=== PATIENT | female | born 1975 | race Caucasian/White ===

== ENCOUNTER 2017-05-06 10:27 | Emergency (ER) | payer BC, OTHER ==
[~2017-05-06] VITALS: Ht 162.6 cm; Wt 73.5 kg
[~2017-05-06 10:27] MED LIST: CYCL-36 PO; FIORIC PO; FLUO60TA OR; GABA300C3 PO; HYDR-3129 PO; LORA1TAB PO; PROT40TA PO; TRAM50TA PO
[2017-05-06 10:32] VITALS: BP 113/70; PULSE 91; RESP 16; TEMP 98; O2SAT 97
[2017-05-06] MEDS ORDERED: PANT20TA2 PO (10:44)
[2017-05-06] MEDS ORDERED: FLUO40CA PO (10:44)
[2017-05-06] MEDS ORDERED: LORA-474 PO (10:44)
[2017-05-06] MEDS ORDERED: ACYC400T PO (11:36)
--- NOTE | 2017-05-06 11:40 | PD ---
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 She says it has been going on for several days. She has never had symptoms like this before. She does not think she is . She is and sexually active only with her . PFSH Past Medical History Hx Anticoagulant Therapy: No Anxiety: Yes Depression: Yes Cancer: No Cardiovascular Problems: No Cerebrovascular Accident: No Diabetes: No Diminished Hearing: No Endocrine: No GERD: Yes Genitourinary: No Headaches: Yes Hepatitis: No Hiatal Hernia: No Immune Disorder: No Musculoskeletal: Yes (NECK PAIN WITH NUMBNESS L ARM) Neurologic: Yes (NECK PAIN) Psychiatric: No Reproductive: Yes (IVF, PCOS) Respiratory: No Migraines: Yes Seizures: No Thyroid Disease: No ?: Not LMP: LAST WEEK : 1 Para: 2 Past Surgical History Abdominal Surgery: No AICD: No Appendectomy: Yes Cardiac Surgery: No Section: Yes Ear Surgery: No Endocrine Surgery: No Eye Surgery: No Genitourinary Surgery: No Gynecologic Surgery: Yes (C SECTION, ) Joint Replacement: No Neurologic Surgery: Yes (TODAY C-5 C-6 C-7) Oral Surgery: No Pacemaker: No Thoracic Surgery: No Other Surgery: Yes Social History Alcohol Use: No Tobacco Use: No Substance Use: No Allergies-Medications (Allergen,Severity, Reaction): Coded Allergies: Influenza Virus Vaccines (Unverified Allergy, Severe, HIVES, 05/06/17) penicillin G (Unverified Allergy, Severe, RASH, 05/06/17) fentanyl (Unverified Allergy, Unknown, unknown, 05/06/17) prochlorperazine (Unverified Allergy, Unknown, PARALYSIS, 05/06/17) Reported Meds & Prescriptions Reported Meds & Active Scripts Active Acyclovir 400 Mg Tab 400 Mg PO TID 10 Days Reported Ativan (Lorazepam) 1 Mg Tab 3 Mg PO DAILY Pantoprazole (Pantoprazole Sodium) 20 Mg Tab 60 Mg PO DAILY Fluoxetine (Fluoxetine HCl) 40 Mg Cap 80 Cap PO DAILY Review of Systems General / Constitutional: No: Fever, Chills Eyes: No: Diploplia Genitourinary: No: Hesitancy, Vaginal Bleeding Skin: Positive Rash Physical Exam Narrative GENERAL: Well developed female SKIN: Focused skin assessment warm/dry. HEAD: Atraumatic. Normocephalic. EYES: Pupils equal and round. No scleral icterus. No injection or drainage. ENT: No nasal bleeding or discharge. Mucous membranes pink and moist. NECK: Trachea midline. No JVD. GASTROINTESTINAL: Abdomen soft, non-tender, nondistended. Hepatic and splenic margins not palpable. Pelvic: There are no lesions on the external genitalia. At the introitus and involving the entire vagina of multiple ulcerated lesions. Also a few tiny wart type lesions more distally in the vagina. MUSCULOSKELETAL: No obvious deformities. No clubbing. No cyanosis. No edema. NEUROLOGICAL: Awake and alert. No obvious cranial nerve deficits. Motor grossly within normal limits. Normal speech. PSYCHIATRIC: Appropriate mood and affect; insight and judgment normal. Data Data Last Documented VS Vital Signs Date Time Temp Pulse Resp B/P (MAP) Pulse Ox O2 Delivery O2 Flow Rate FiO2 05/06/17 10:32 98.0 91 16 113/70 (84) 97 Orders Orders Herpes Simplex Virus Culture (05/06/17 11:20) Gc And Chlamydia Pcr (05/06/17 11:32) Wet Prep Profile (05/06/17 11:32) MDM Medical Decision Making Medical Screen Exam Complete: Yes Emergency Medical Condition: Yes Medical Record Reviewed: Yes Differential Diagnosis Differential includes genital herpes, genital warts, genital ulcers Narrative Course Patient has genital ulcers and I'm going to prescribe Zovirax. I have recommended to the patient that she should follow-up with GYNas she does not understand how she could've gotten this and in fact it could be another cause for her genital ulcers Diagnosis Primary Impression: Female genital ulcer disease Scripts Acyclovir (Acyclovir) 400 Mg Tab 400 MG PO TID for Mgmt Viral Infection for 10 Days, TAB 0 Refills Prov: Mark Escobar MD 05/06/17 Disposition: 01 DISCHARGE HOME Condition: Stable Mark Escobar MD May 06, 2017 11:40
[2017-05-06 17:53] LABS: CHLAMYDIA PCR NOT DETECTED (NOT DETECT); NEISSERIA PCR NOT DETECTED (NOT DETECT)
== END 2017-05-06 12:00 | disposition home or self-care (01) ==
LOC: PHED 10:27
DX: A60.00 Herpesviral infection of urogenital system, unspecified (principal)
CPT/HCPCS: 87210; 87255; 87491; 87591; 99284

== ENCOUNTER 2017-08-04 02:49 | Emergency (ER) | payer BC ==
[~2017-08-04] VITALS: Ht 162.6 cm; Wt 74.0 kg
[~2017-08-04 02:49] MED LIST changes: +ACYC400T PO; -CYCL-36 PO; -FIORIC PO; +FLUO40CA PO; -FLUO60TA OR; -GABA300C3 PO; -HYDR-3129 PO; +LORA-474 PO; -LORA1TAB PO; +PANT20TA2 PO; -PROT40TA PO; -TRAM50TA PO
[2017-08-04 02:54] VITALS: BP 131/83; PULSE 101; RESP 16; TEMP 97.4; O2SAT 99
[2017-08-04 03:00] VITALS: BP 131/83; PULSE 101; RESP 16; TEMP 97.4; O2SAT 99
[2017-08-04] MEDS ORDERED: SODIUM CHLOR 0.9% 1000 ML INJ 1,000 ML IV SCH ×2 (03:09→04:09)
[2017-08-04] MEDS ORDERED: SODIUM CHLORIDE 0.9% FLUSH 10 ML FLUSH IV FLUSH PRN (03:15)
[2017-08-04] MEDS ORDERED: HYDROmorphone HCL PF 1 MG/ML VIAL IVP ONE ×2 (03:15→04:00)
[2017-08-04] MEDS ORDERED: ONDANSETRON HCL 4 MG/2 ML VIAL IV ONE ×2 (03:15→04:00)
--- NOTE | 2017-08-04 03:15 | PD ---
HPI Chief Complaint: Abdominal Pain Time Seen by Provider: 03:00 Travel History International Travel<30 days: No Contact w/Intl Traveler<30days: No Traveled to known affect area: No History of Present Illness HPI The patient is a 41-year-old female, G1, P2, A0 that complains of right upper quadrant abdominal pain for 2 hours. There is no radiation of the pain. She has been nauseated without vomiting. She denies any fever. She denies any melanotic or bloody stools. She denies any previous episodes of this pain. She states she cannot be , she is not sexually active. The pain as a 9/ 10 and sharp pain. She denies any aspirin or nonsteroidal anti-inflammatory drug use. She does not drink alcohol. The patient states she already takes pantoprazole. She has a Almaraz's esophagus and has a history of reflux esophagitis. 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 PFSH Past Medical History Hx Anticoagulant Therapy: No Anxiety: Yes Depression: Yes Cancer: No Cardiovascular Problems: No Cerebrovascular Accident: No Diabetes: No Diminished Hearing: No Endocrine: No GERD: Yes Genitourinary: No Headaches: Yes Hepatitis: No Hiatal Hernia: No Immune Disorder: No Musculoskeletal: Yes (NECK PAIN WITH NUMBNESS L ARM) Neurologic: Yes (NECK PAIN) Psychiatric: No Reproductive: Yes (IVF, PCOS) Respiratory: No Migraines: Yes Seizures: No Thyroid Disease: No : 1 Para: 2 Past Surgical History Abdominal Surgery: No AICD: No Appendectomy: Yes Cardiac Surgery: No Section: Yes Ear Surgery: No Endocrine Surgery: No Eye Surgery: No Genitourinary Surgery: No Gynecologic Surgery: Yes (C SECTION, ) Joint Replacement: No Neurologic Surgery: Yes (TODAY C-5 C-6 C-7) Oral Surgery: No Pacemaker: No Thoracic Surgery: No Other Surgery: Yes Social History Alcohol Use: No Tobacco Use: No Substance Use: No Allergies-Medications (Allergen,Severity, Reaction): Coded Allergies: Influenza Virus Vaccines (Unverified Allergy, Severe, HIVES, 08/04/17) penicillin G (Unverified Allergy, Severe, RASH, 08/04/17) fentanyl (Unverified Allergy, Unknown, unknown, 08/04/17) prochlorperazine (Unverified Allergy, Unknown, PARALYSIS, 08/04/17) Reported Meds & Prescriptions Reported Meds & Active Scripts Active Percocet (Oxycodone-Acetaminophen) 5-325 mg Tab 1 Tab PO Q4H PRN Zofran (Ondansetron HCl) 4 Mg Tab 4 Mg PO Q6HR PRN Zantac (Ranitidine HCl) 150 Mg Tab 150 Mg PO BID Reported Lorazepam 2 Mg Tab 2 Mg PO HS PRN Lorazepam 1 Mg Tab 1 Mg PO DAILY PRN Pantoprazole (Pantoprazole Sodium) 40 Mg Tab 40 Mg PO BID Fluoxetine (Fluoxetine HCl) 40 Mg Cap 80 Cap PO DAILY Review of Systems Except as stated in HPI: all other systems reviewed are Neg Physical Exam Narrative GENERAL: The patient is alert, oriented 3 in moderate apparent distress with her upper quadrant abdominal pain. Her vital signs show heart rate of 101 but otherwise normal. SKIN: Focused skin assessment warm/dry. HEAD: Atraumatic. Normocephalic. EYES: Pupils equal and round. No scleral icterus. No injection or drainage. ENT: No nasal bleeding or discharge. Mucous membranes pink and moist. NECK: Trachea midline. No JVD. CARDIOVASCULAR: Regular rate and rhythm. No murmur appreciated. RESPIRATORY: No accessory muscle use. Clear to auscultation. Breath sounds equal bilaterally. GASTROINTESTINAL: Abdomen soft, with tenderness to direct palpation in the right upper quadrant, nondistended. Hepatic and splenic margins not palpable. No guarding or rebound is present. Bertrand's sign is positive. MUSCULOSKELETAL: No obvious deformities. No clubbing. No cyanosis. No edema. NEUROLOGICAL: Awake and alert. No obvious cranial nerve deficits. Motor grossly within normal limits. Normal speech. PSYCHIATRIC: Appropriate mood and affect; insight and judgment normal. Data Data Last Documented VS Vital Signs Date Time Temp Pulse Resp B/P (MAP) Pulse Ox O2 Delivery O2 Flow Rate FiO2 08/04/17 04:56 90 16 113/73 (86) 99 Room Air 08/04/17 03:00 97.4 Orders Orders Beta Hcg (Quant/Titer) (08/04/17 03:09) Complete Blood Count With Diff (08/04/17 03:09) Comprehensive Metabolic Panel (08/04/17 03:09) Lipase (08/04/17 03:09) Urinalysis - C+S If Indicated (08/04/17 03:09) Ct Abd/Pel W Iv Contrast(Rout) (08/04/17 03:09) Iv Access Insert/Monitor (08/04/17 03:09) Ecg Monitoring (08/04/17 03:09) Oximetry (08/04/17 03:09) Sodium Chlor 0.9% 1000 Ml Inj (Ns 1000 M (08/04/17 03:09) Sodium Chloride 0.9% Flush (Ns Flush) (08/04/17 03:15) Hydromorphone Pf Inj (Dilaudid Pf Inj) (08/04/17 03:15) Ondansetron Inj (Zofran Inj) (08/04/17 03:15) Iohexol 350 Inj (Omnipaque 350 Inj) (08/04/17 03:20) Ondansetron Inj (Zofran Inj) (08/04/17 04:00) Hydromorphone Pf Inj (Dilaudid Pf Inj) (08/04/17 04:00) Pantoprazole Inj (Protonix Inj) (08/04/17 04:15) Sodium Chlor 0.9% 1000 Ml Inj (Ns 1000 M (08/04/17 04:09) Famotidine Inj (Pepcid Inj) (08/04/17 04:15) Al-Mag Hy-Si 40-40-4 Mg/Ml Liq (Mag-Al P (08/04/17 04:15) Lidocaine 2% Viscous (Xylocaine 2% Visco (08/04/17 04:15) Labs Laboratory Tests Test 08/04/17 03:14 White Blood Count 8.8 TH/MM3 Red Blood Count 4.10 MIL/MM3 Hemoglobin 12.6 GM/DL Hematocrit 37.0 % Mean Corpuscular Volume 90.2 FL Mean Corpuscular Hemoglobin 30.8 PG Mean Corpuscular Hemoglobin Concent 34.2 % Red Cell Distribution Width 12.6 % Platelet Count 260 TH/MM3 Mean Platelet Volume 8.6 FL Neutrophils (%) (Auto) 45.2 % Lymphocytes (%) (Auto) 44.8 % Monocytes (%) (Auto) 6.8 % Eosinophils (%) (Auto) 2.7 % Basophils (%) (Auto) 0.5 % Neutrophils # (Auto) 4.1 TH/MM3 Lymphocytes # (Auto) 3.9 TH/MM3 Monocytes # (Auto) 0.6 TH/MM3 Eosinophils # (Auto) 0.2 TH/MM3 Basophils # (Auto) 0.0 TH/MM3 CBC Comment DIFF FINAL Differential Comment Urine Color YELLOW Urine Turbidity CLEAR Urine pH 7.0 Urine Specific [place] 1.015 Urine Protein NEG mg/dL Urine Glucose (UA) NEG mg/dL Urine Ketones NEG mg/dL Urine Occult Blood NEG Urine Nitrite NEG Urine Bilirubin NEG Urine Leukocyte Esterase NEG Urine RBC 0-2 /hpf Urine WBC 0-2 /hpf Urine Squamous Epithelial Cells 0-5 /hpf Urine Bacteria NONE /hpf Microscopic Urinalysis Comment CULT NOT INDICATED Blood Urea Nitrogen 15 MG/DL Creatinine 0.78 MG/DL Random Glucose 91 MG/DL Total Protein 7.2 GM/DL Albumin 3.6 GM/DL Calcium Level 8.6 MG/DL Alkaline Phosphatase 89 U/L Aspartate Amino Transf (AST/SGOT) 15 U/L Alanine Aminotransferase (ALT/SGPT) 33 U/L Total Bilirubin 0.2 MG/DL Sodium Level 137 MEQ/L Potassium Level 3.6 MEQ/L Chloride Level 103 MEQ/L Carbon Dioxide Level 26.6 MEQ/L Anion Gap 7 MEQ/L Estimat Glomerular Filtration Rate 81 ML/MIN Lipase 248 U/L Human Chorionic Gonadotropin, Quant LESS THAN 1 MIU/ML MDM Medical Decision Making Medical Screen Exam Complete: Yes Emergency Medical Condition: Yes Medical Record Reviewed: Yes Interpretation(s) The CT abdomen/pelvis with IV contrast shows normal bowel gas pattern with no inflammatory change in moderate hepatic steatosis. The gallbladder is partially contracted with no evidence of cholelithiasis. There is a 2 x 1.4 cm right ovary and cyst the structure. The urinalysis is normal and culture is not indicated. The CBC is normal. The complete metabolic profile shows a GFR of 81 but is otherwise normal. The beta-hCG is less than 1. The lipase is normal. Differential Diagnosis Ulcer pain, pyelonephritis, cholecystitis, cholelithiasis with colic, pancreatitis, anemia, electrolyte disorder, -unlikely, reflux esophagitis Narrative Course It is now 0500 and the patient is feeling better, her pain is only a 3/10. She has no nausea at this time. There is no evidence of gallbladder related pain and the patient may have an ulcer or reflux esophagitis. She is going to follow -up the first part of next month with her filemaker developer who is likely to scope her. She will be given Zantac, Percocet and Zofran prescriptions. She already elevates the head of her bed. She is told not to drink alcohol or drive on the Percocet 5. Additional Instructions: As we discussed, do not drink alcohol or drive on the Percocet 5. Do not miss your appointment with your filemaker developer in the first part of next month. Med/Other Pt SpecificInfo: Prescription(s) given Scripts Oxycodone-Acetaminophen (Percocet) 5-325 mg Tab 1 TAB PO Q4H Y for PAIN, #21 TAB 0 Refills Prov: Juan Mathur MD 08/04/17 Ondansetron (Zofran) 4 Mg Tab 4 MG PO Q6HR Y for NAUSEA OR VOMITING, #30 TAB 0 Refills Prov: Juan Mathur MD 08/04/17 Ranitidine (Zantac) 150 Mg Tab 150 MG PO BID for Reduce Stomach Acid, #60 TAB 0 Refills Prov: Juan Mathur MD 08/04/17 Disposition: 01 DISCHARGE HOME Condition: Stable Juan Mathur MD Aug 04, 2017 03:15
[2017-08-04] MEDS ORDERED: IOHEXOL 350 MG/ML 10 ML VIAL (for RAD DIAG) IVCONTRAST ONE (03:20)
[2017-08-04] MEDS ORDERED: PANT40TA3 PO (03:33)
[2017-08-04] MEDS ORDERED: LORA2TAB7 PO (03:33)
[2017-08-04] MEDS ORDERED: LORA1TAB12 PO (03:33)
[2017-08-04 03:50] LABS: BLOOD, URINE NEG (NEG); GLUCOSE,URINE NEG (NEG); KETONE, URINE NEG (NEG); NITRITE,URINE NEG (NEG)
[2017-08-04 03:52] VITALS: BP 127/79; PULSE 91; RESP 16; O2SAT 98
[2017-08-04 03:52] LABS: AUTOMATED NEUTROPHIL # 4.1 TH/MM3 (1.8-7.7); BASOPHIL % 0.5 % (0.0-2.0); EOSINOPHIL # 0.2 TH/MM3 (0-0.4); EOSINOPHIL % 2.7 % (0.0-4.0); HEMO FLAGS DIFF FINAL; LYMPH % 44.8 % (9.0-44.0); LYMPHOCYTE # 3.9 TH/MM3 (1.0-4.8); MEAN CELL VOLUME 90.2 FL (80.0-100.0); MEAN CORPUSCULAR HEMOGLOBIN 30.8 PG (27.0-34.0); MEAN CORPUSCULAR HGB CONC 34.2 % (32.0-36.0); MONO % 6.8 % (0.0-8.0); NEUT % 45.2 % (16.0-70.0); PLATELET COUNT 260 TH/MM3 (150-450); RED CELL DISTRIBUTION WIDTH 12.6 % (11.6-17.2); WHITE BLOOD COUNT 8.8 TH/MM3 (4.0-11.0)
[2017-08-04 03:56] LABS: COMMENT (UR) CULT NOT INDICATED; CULTURE IF INDICATED CULT NOT INDICATED; RBC, URINE 0-2 /hpf (0-3); SQUAMOUS EPITHELIAL CELL URINE 0-5 /hpf (0-5); URINE COLOR YELLOW (YELLW/STRAW); WBC, URINE 0-2 /hpf (0-5)
[2017-08-04 03:58] LABS: CHLORIDE 103 MEQ/L (98-107); POTASSIUM 3.6 MEQ/L (3.5-5.1); SODIUM (NA) 137 MEQ/L (136-145)
[2017-08-04 04:02] LABS: ANION GAP 7 MEQ/L (5-15); BICARBONATE 26.6 MEQ/L (21.0-32.0); BLOOD UREA NITROGEN 15 MG/DL (7-18)
[2017-08-04 04:05] LABS: ALT (GPT) 33 U/L (10-53); AST (GOT) 15 U/L (15-37); GLOMERULAR FILTRATION RATE 81 ML/MIN (>89)
--- NOTE | 2017-08-04 04:05 | RADRPT ---
EXAM DATE/TIME: 08/04/2017 03:29 [facility] COMPARISON: No previous studies available for comparison. INDICATIONS : Nausea, vomiting and right upper quad pain for 2 hours. IV CONTRAST: 95 cc Omnipaque 350 (iohexol) IV ORAL CONTRAST: No oral contrast ingested. RADIATION DOSE: 7.66 CTDIvol (mGy) MEDICAL HISTORY : Gastroesophageal reflux disease. SURGICAL HISTORY : Appendectomy. section. ENCOUNTER: Initial ACUITY: 1 day PAIN SCALE: 9/10 LOCATION: Right upper quadrant TECHNIQUE: Volumetric scanning of the abdomen and pelvis was performed. Using automated exposure control and ad justment of the mA and/or kV according to patient size, radiation dose was kept as low as reasonably achievable to obtain optimal diagnostic quality images. DICOM format image data is available electro nically for review and comparison. FINDINGS: LOWER LUNGS: The visualized lower lungs are clear. LIVER: Homogeneous density without lesion. There is no dilation of the biliary tree. No calcified gallston es. There is moderate hepatic steatosis. The gallbladder is partially contracted. SPLEEN: Normal size without lesion. PANCREAS: Within normal limits. KIDNEYS: Normal in size and shape. There is no mass, stone or hydronephrosis. ADRENAL GLANDS: Within normal limits. VASCULAR: There is no aortic aneurysm. BOWEL/MESENTERY: The stomach, small bowel, and colon demonstrate no acute abnormality. There is no free intraperitone al air or fluid. ABDOMINAL WALL: Within normal limits. RETROPERITONEUM: There is no lymphadenopathy. BLADDER: No wall thickening or mass. REPRODUCTIVE: Unremarkable uterus and left adnexa. There is a 2 x 1.4 cm right ovarian cystic structure. INGUINAL: There is no lymphadenopathy or hernia. MUSCULOSKELETAL: Within normal limits for patient age. CONCLUSION: 1. Normal bowel gas pattern with no inflammatory change. 2. Moderate hepatic steatosis. 3. The gallbladder is partially contracted with no evidence of cholelithiasis. 4. 2 x 1.4 cm right ovarian cystic structure. Trey Payne MD on August 04, 2017 at 4:00 Board Certified Radiologist. This report was verified electronically.
[2017-08-04 04:06] LABS: TOTAL BILIRUBIN ADULT 0.2 MG/DL (0.2-1.0)
[2017-08-04 04:08] LABS: ALKALINE PHOSPHATASE 89 U/L (45-117)
[2017-08-04 04:10] LABS: BETA HCG QUANT LESS THAN 1 MIU/ML (0-5)
[2017-08-04] MEDS ORDERED: LIDOCAINE VISCOUS 2% SOLN 15 ML UDC PO ONE (04:15)
[2017-08-04] MEDS ORDERED: FAMOTIDINE 20 MG/2 ML VIAL IV PUSH ONE (04:15)
[2017-08-04] MEDS ORDERED: ALUMINUM/MAGNESIUM/SIMETH 30 ML CUP PO ONE (04:15)
[2017-08-04] MEDS ORDERED: PANTOPRAZOLE SODIUM 40 MG VIAL IVP ONE (04:15)
[2017-08-04] MEDS ORDERED: ZANT150T2 PO (04:39)
[2017-08-04] MEDS ORDERED: ZOFR4TAB PO (04:43)
[2017-08-04 04:56] VITALS: BP 113/73; PULSE 90; RESP 16; O2SAT 99
[2017-08-04] MEDS ORDERED: PERC5TAB12 PO (04:57)
== END 2017-08-04 05:27 | disposition home or self-care (01) ==
LOC: PHED 02:49
DX: R10.11 Right upper quadrant pain (principal); N83.201 Unspecified ovarian cyst, right side
CPT/HCPCS: 74177; 80053; 81001; 83690; 84702; 85025; 96361; 96374; 96375; 96376; 99285; C9113; J1170; J2405; J7030; Q9967

== ENCOUNTER 2017-08-19 18:05 | Observation (INO) | payer BC ==
[~2017-08-19] VITALS: Ht 162.6 cm; Wt 75.0 kg
[~2017-08-19 18:05] MED LIST changes: -ACYC400T PO; -LORA-474 PO; +LORA1TAB12 PO; +LORA2TAB7 PO; -PANT20TA2 PO; +PANT40TA3 PO; +PERC5TAB12 PO; +ZANT150T2 PO; +ZOFR4TAB PO
[2017-08-19 18:06] VITALS: BP 133/81; PULSE 83; RESP 18; TEMP 98.7; O2SAT 99
[2017-08-19] MEDS ORDERED: SODIUM CHLOR 0.9% 1000 ML INJ 1,000 ML IV SCH (18:34)
--- NOTE | 2017-08-19 18:39 | PD ---
HPI Chief Complaint: Abdominal Pain Time Seen by Provider: 18:29 Travel History International Travel<30 days: No Contact w/Intl Traveler<30days: No Traveled to known affect area: No History of Present Illness HPI 42-year-old female here for evaluation of epigastric and right upper quadrant abdominal pain. The patient was seen in the emergency department at [facility] a week ago for similar complaints, had a CT abdomen and pelvis that showed no acute intra-abdominal pathology with a contracted gallbladder. She was seen by a concrete inspector Dr. Briones yesterday and had upper endoscopy which showed gastritis. The patient was recommended to take Protonix. She has also been taking Zofran, however she states she has been feeling nauseous and vomiting. Epigastric and right upper quadrant abdominal pain has been persistent, described as heartburn feeling as well as pressure, radiates to her right flank. Pain is constant, moderate to severe, worse with eating. No fevers or chills. No urinary symptoms. History of section. No other abdominal surgeries. PFSH Past Medical History Hx Anticoagulant Therapy: No Anxiety: Yes Depression: Yes Cancer: No Cardiovascular Problems: No Cerebrovascular Accident: No Diabetes: No Diminished Hearing: No Endocrine: No Gastrointestinal Disorders: Yes (RALPH'S ESOPHAGUS) GERD: Yes Genitourinary: No Headaches: Yes Hepatitis: No Hiatal Hernia: No Immune Disorder: No Musculoskeletal: Yes (NECK PAIN WITH NUMBNESS L ARM) Neurologic: Yes (NECK PAIN) Psychiatric: No Reproductive: Yes (IVF, PCOS) Respiratory: No Migraines: Yes Seizures: No Thyroid Disease: No ?: Not LMP: 08/18/17 : 1 Para: 2 Past Surgical History Abdominal Surgery: No AICD: No Appendectomy: Yes Cardiac Surgery: No Section: Yes Ear Surgery: Yes (TUBES A CHILD) Endocrine Surgery: No Eye Surgery: No Genitourinary Surgery: No Gynecologic Surgery: Yes (C SECTION, ) Joint Replacement: No Neurologic Surgery: Yes (C-5 C-6 C-7 IN DECEMBER 2014) Oral Surgery: No Pacemaker: No Thoracic Surgery: No Other Surgery: Yes Social History Alcohol Use: No Tobacco Use: No Substance Use: No Allergies-Medications (Allergen,Severity, Reaction): Coded Allergies: Influenza Virus Vaccines (Unverified Allergy, Severe, HIVES, 08/04/17) penicillin G (Unverified Allergy, Severe, RASH, 08/04/17) fentanyl (Unverified Allergy, Unknown, unknown, 08/04/17) prochlorperazine (Unverified Allergy, Unknown, PARALYSIS, 08/04/17) Reported Meds & Prescriptions Reported Meds & Active Scripts Active Percocet (Oxycodone-Acetaminophen) 5-325 mg Tab 1 Tab PO Q4H PRN Zofran (Ondansetron HCl) 4 Mg Tab 4 Mg PO Q6HR PRN Zantac (Ranitidine HCl) 150 Mg Tab 150 Mg PO BID Reported Lorazepam 2 Mg Tab 2 Mg PO HS PRN Lorazepam 1 Mg Tab 1 Mg PO DAILY PRN Pantoprazole (Pantoprazole Sodium) 40 Mg Tab 40 Mg PO BID Fluoxetine (Fluoxetine HCl) 40 Mg Cap 80 Cap PO DAILY Review of Systems Except as stated in HPI: all other systems reviewed are Neg Physical Exam Narrative GENERAL: Well-developed, well-nourished, comfortable, no apparent distress. SKIN: Focused skin assessment warm/dry. No rash. HEAD: Atraumatic. Normocephalic. EYES: Pupils equal and round. No scleral icterus. No injection or drainage. ENT: Mucous membranes pink and moist. NECK: Trachea midline. No JVD. CARDIOVASCULAR: Regular rate and rhythm. No murmur appreciated. RESPIRATORY: No accessory muscle use. Clear to auscultation. Breath sounds equal bilaterally. GASTROINTESTINAL: Abdomen soft, nondistended. Moderate epigastric and right upper quadrant tenderness. No peritoneal signs. Skin abdomen is soft and nontender. Normal bowel sounds. MUSCULOSKELETAL: No obvious deformities. No clubbing. No cyanosis. No edema. NEUROLOGICAL: Awake and alert. No obvious cranial nerve deficits. Motor grossly within normal limits. Normal speech. PSYCHIATRIC: Appropriate mood and affect; insight and judgment normal. Data Data Last Documented VS Vital Signs Date Time Temp Pulse Resp B/P (MAP) Pulse Ox O2 Delivery O2 Flow Rate FiO2 08/19/17 20:28 20 08/19/17 18:55 98 Room Air 08/19/17 18:06 98.7 83 Orders Orders Complete Blood Count With Diff (08/19/17 18:34) Comprehensive Metabolic Panel (08/19/17 18:34) Lipase (08/19/17 18:34) Lactic Acid (08/19/17 18:34) Prothrombin Time / Inr (Pt) (08/19/17 18:34) Act Partial Throm Time (Ptt) (08/19/17 18:34) Urinalysis - C+S If Indicated (08/19/17 18:34) Iv Access Insert/Monitor (08/19/17 18:34) Ecg Monitoring (08/19/17 18:34) Oximetry (08/19/17 18:34) Ondansetron Inj (Zofran Inj) (08/19/17 18:45) Sodium Chlor 0.9% 1000 Ml Inj (Ns 1000 M (08/19/17 18:34) Sodium Chloride 0.9% Flush (Ns Flush) (08/19/17 18:45) Electrocardiogram (08/19/17 18:34) Abdomen, Upright Only (08/19/17 18:34) Al-Mag Hy-Si 40-40-4 Mg/Ml Liq (Mag-Al P (08/19/17 18:45) Lidocaine 2% Viscous (Xylocaine 2% Visco (08/19/17 18:45) Ed Urine Pregnancytest Poc (08/19/17 18:34) Morphine Inj (Morphine Inj) (08/19/17 18:45) Us Abdomen Gallbladder (08/19/17 ) Morphine Inj (Morphine Inj) (08/19/17 20:15) Admit Order (Ed Use Only) (08/19/17 20:29) Labs Laboratory Tests Test 08/19/17 18:10 08/19/17 18:50 Urine Color LIGHT-YELLOW Urine Turbidity CLEAR Urine pH 7.0 Urine Specific [place] 1.010 Urine Protein NEG mg/dL Urine Glucose (UA) NEG mg/dL Urine Ketones NEG mg/dL Urine Occult Blood TRACE Urine Nitrite NEG Urine Bilirubin NEG Urine Urobilinogen LESS THAN 2.0 MG/DL Urine Leukocyte Esterase NEG Urine RBC LESS THAN 1 /hpf Urine WBC 1 /hpf Urine Squamous Epithelial Cells <1 /hpf Microscopic Urinalysis Comment CULT NOT INDICATED White Blood Count 6.5 TH/MM3 Red Blood Count 3.94 MIL/MM3 Hemoglobin 12.5 GM/DL Hematocrit 36.6 % Mean Corpuscular Volume 92.8 FL Mean Corpuscular Hemoglobin 31.6 PG Mean Corpuscular Hemoglobin Concent 34.1 % Red Cell Distribution Width 13.5 % Platelet Count 241 TH/MM3 Mean Platelet Volume 8.4 FL Neutrophils (%) (Auto) 44.9 % Lymphocytes (%) (Auto) 45.0 % Monocytes (%) (Auto) 6.4 % Eosinophils (%) (Auto) 3.0 % Basophils (%) (Auto) 0.7 % Neutrophils # (Auto) 2.9 TH/MM3 Lymphocytes # (Auto) 2.9 TH/MM3 Monocytes # (Auto) 0.4 TH/MM3 Eosinophils # (Auto) 0.2 TH/MM3 Basophils # (Auto) 0.0 TH/MM3 CBC Comment DIFF FINAL Differential Comment Prothrombin Time 10.4 SEC Prothromb Time International Ratio 1.0 RATIO Activated Partial Thromboplast Time 27.1 SEC Blood Urea Nitrogen 13 MG/DL Creatinine 0.76 MG/DL Random Glucose 86 MG/DL Total Protein 7.2 GM/DL Albumin 3.5 GM/DL Calcium Level 8.8 MG/DL Alkaline Phosphatase 93 U/L Aspartate Amino Transf (AST/SGOT) 20 U/L Alanine Aminotransferase (ALT/SGPT) 37 U/L Total Bilirubin 0.2 MG/DL Sodium Level 139 MEQ/L Potassium Level 4.0 MEQ/L Chloride Level 104 MEQ/L Carbon Dioxide Level 28.0 MEQ/L Anion Gap 7 MEQ/L Estimat Glomerular Filtration Rate 83 ML/MIN Lactic Acid Level 0.7 mmol/L Lipase 163 U/L MDM Medical Decision Making Medical Screen Exam Complete: Yes Emergency Medical Condition: Yes Interpretation(s) EKG: Sinus, rate 66, normal axis, normal intervals, no acute ischemic abnormality. Differential Diagnosis Biliary colic, cholecystitis, cholelithiasis, pancreatitis, peptic ulcer disease , bowel perforation, pyelonephritis, nephrolithiasis Narrative Course Initial vital signs show heart rate 83, blood pressure 133/81, pulse ox 99% on room air, oral temp of 98.7F. CBC is unremarkable. CMP is unremarkable. Lactic acid is 0.7. Lipase is 163. UA is not suggestive of UTI. Upright abdominal x-ray: CONCLUSION: 1. Moderate constipation on the right. No acute findings. Right upper quadrant ultrasound: CONCLUSION: Gallstone in gallbladder neck. No gallbladder wall thickening. Fatty liver. Patient was made aware of all findings. She is still complaining of right upper quadrant pain and has tenderness on exam despite receiving a dose of IV morphine. There are no peritoneal signs. She will be given another dose of morphine. The patient reports that she can no longer take the pain and would like to be seen by general surgeon. This is a second visit to the emergency department this week for right upper quadrant abdominal pain. Because the patient is having intractable pain, she will be admitted to the hospital for further pain management as well as Gen. surgery consultation. As per a recent memorandum sent out by our on-call general surgeons, they do not want to be emergently contacted for cases such as this. Therefore, the patient will be admitted to the medical service with routine consult placed to general surgery. Case discussed with hospitalist Dr. Denson who will admit the patient to her service. Diagnosis Primary Impression: Intractable abdominal pain Additional Impressions: Cholelithiasis Qualified Codes: K80.20 - Calculus of gallbladder without cholecystitis without obstruction Biliary colic Admitting Information Admitting Physician Requests: Antonio Kraus MD Aug 19, 2017 18:39
[2017-08-19] MEDS ORDERED: ONDANSETRON HCL 4 MG/2 ML VIAL IVP ONE (18:45)
[2017-08-19] MEDS ORDERED: MORPHINE SULFATE 4 MG/ML INJ IV PUSH ONE ×2 (18:45→20:15)
[2017-08-19] MEDS ORDERED: LIDOCAINE VISCOUS 2% SOLN 15 ML UDC PO ONE (18:45)
[2017-08-19] MEDS ORDERED: ALUMINUM/MAGNESIUM/SIMETH 30 ML CUP PO ONE (18:45)
[2017-08-19] MEDS: SODIUM CHLORIDE 0.9% FLUSH 10 ML FLUSH IV FLUSH PRN (18:54)
[2017-08-19 18:55] VITALS: RESP 16; O2SAT 98
--- NOTE | 2017-08-19 19:03 | RADRPT ---
EXAM DATE/TIME: 08/19/2017 18:46 [facility] COMPARISON: No previous studies available for comparison. INDICATIONS : Right sided abdomen pain. MEDICAL HISTORY : Gastroesophageal reflux disease. SURGICAL HISTORY : Appendectomy. section. ENCOUNTER: Initial ACUITY: 3 days PAIN SCORE: 10/10 LOCATION: Abdomen. FINDINGS: A single erect view of the abdomen demonstrates the lower lungs to be clear. No evidence of free int raperitoneal gas. The visualized bowel loops are unremarkable. CONCLUSION: 1. Moderate constipation on the right. No acute findings. Jin Sebastian MD on August 19, 2017 at 19:01 Board Certified Radiologist. This report was verified electronically.
[2017-08-19 19:17] LABS: AUTOMATED NEUTROPHIL # 2.9 TH/MM3 (1.8-7.7); BASOPHIL % 0.7 % (0.0-2.0); EOSINOPHIL # 0.2 TH/MM3 (0-0.4); HEMATOCRIT 36.6 % (35.0-46.0); HEMO FLAGS DIFF FINAL; LYMPHOCYTE # 2.9 TH/MM3 (1.0-4.8); MEAN CELL VOLUME 92.8 FL (80.0-100.0); MEAN CORPUSCULAR HEMOGLOBIN 31.6 PG (27.0-34.0); MEAN CORPUSCULAR HGB CONC 34.1 % (32.0-36.0); MONO % 6.4 % (0.0-8.0); NEUT % 44.9 % (16.0-70.0); PLATELET COUNT 241 TH/MM3 (150-450); RED BLOOD COUNT 3.94 MIL/MM3 (4.00-5.30); RED CELL DISTRIBUTION WIDTH 13.5 % (11.6-17.2); WHITE BLOOD COUNT 6.5 TH/MM3 (4.0-11.0)
[2017-08-19 19:23] LABS: APTT (PATIENT) 27.1 SEC (24.3-30.1); PROTHROMBIN TIME - PATIENT 10.4 SEC (9.8-11.6)
[2017-08-19 19:24] LABS: BLOOD, URINE TRACE (NEG); GLUCOSE,URINE NEG (NEG); KETONE, URINE NEG (NEG); NITRITE,URINE NEG (NEG); SQUAMOUS EPITHELIAL CELL URINE <1 /hpf (0-5); URINE COLOR LIGHT-YELLOW (YELLW/STRAW)
[2017-08-19 19:25] LABS: COMMENT (UR) CULT NOT INDICATED; CULTURE IF INDICATED CULT NOT INDICATED
[2017-08-19 19:31] LABS: ANION GAP 7 MEQ/L (5-15); AST (GOT) 20 U/L (15-37); BLOOD UREA NITROGEN 13 MG/DL (7-18); CHLORIDE 104 MEQ/L (98-107); GLOMERULAR FILTRATION RATE 83 ML/MIN (>89); SODIUM (NA) 139 MEQ/L (136-145)
[2017-08-19 19:32] LABS: ALT (GPT) 37 U/L (10-53)
[2017-08-19 19:34] LABS: ALKALINE PHOSPHATASE 93 U/L (45-117); TOTAL BILIRUBIN ADULT 0.2 MG/DL (0.2-1.0)
--- NOTE | 2017-08-19 20:05 | RADRPT ---
EXAM DATE/TIME: 08/19/2017 19:25 [facility] COMPARISON: No previous studies available for comparison. INDICATIONS : Right upper quadrant pain. MEDICAL HISTORY : Gastroesophageal reflux disease. Glasses. Dizziness. Headache. Numbness. Depression. Anxiety. SURGICAL HISTORY : section. Appendectomy. Ear surgery. ENCOUNTER: Initial ACUITY: 1 day PAIN SCORE: 3/10 LOCATION: Right upper quadrant MEASUREMENTS: LIVER: 15.9 cm length COMMON DUCT: 4 mm RIGHT KIDNEY: 10.0 x 3.8 x 3.9 cm FINDINGS: There is fatty infiltration of the liver. There is a stone in the gallbladder neck measuring up to ab out 5 mm x 4 mm x 2 mm. Common bile duct measures 4 mm. Portal venous flow is normal direction. Right kidney unremarkable without hydronephrosis. No free fluid. CONCLUSION: Gallstone in gallbladder neck. No gallbladder wall thickening. Fatty liver. Jin Sebastian MD on August 19, 2017 at 20:02 Board Certified Radiologist. This report was verified electronically.
[2017-08-19] MEDS: SODIUM CHLOR 0.9% 1000 ML INJ 1,000 ML IV SCH (20:34)
[2017-08-19] MEDS ORDERED: LACTULOSE SYRUP 20 GM/30 ML CUP PO PRN (20:45)
[2017-08-19] MEDS ORDERED: MAGNESIUM HYDROXIDE SUSP 30 ML CUP PO PRN (20:45)
[2017-08-19] MEDS ORDERED: BISACODYL 10 MG SUPP RECTAL PRN (20:45)
[2017-08-19] MEDS ORDERED: LORazepam 2 MG TAB PO PRN (20:45)
[2017-08-19] MEDS ORDERED: NALOXONE HCL 0.4 MG/ML AMP IV PUSH PRN (20:45)
[2017-08-19] MEDS ORDERED: SENNOSIDES 8.6 MG TAB PO PRN (20:45)
[2017-08-19] MEDS ORDERED: SODIUM CHLORIDE 0.9% FLUSH 10 ML FLUSH IV FLUSH PRN (20:45)
[2017-08-19] MEDS ORDERED: ACETAMINOPHEN 325 MG TAB PO PRN (20:45)
[2017-08-19] MEDS: PANTOPRAZOLE SOD 40 MG DELAYED RELEASE TAB PO SCH (21:00)
[2017-08-19] MEDS: SODIUM CHLORIDE 0.9% FLUSH 10 ML FLUSH IV FLUSH SCH (21:00)
[2017-08-19 22:06] VITALS: BP 111/77; PULSE 78; RESP 16; TEMP 98.1; O2SAT 96
[2017-08-19] MEDS: DOCUSATE SODIUM 50 MG/SENNA 8.6 MG TAB PO SCH (23:22)
[2017-08-19] MEDS: FAMOTIDINE 20 MG TAB PO SCH (23:22)
[2017-08-19 23:35] VITALS: BP 110/74; PULSE 81; RESP 17; TEMP 98.2; O2SAT 96
[2017-08-20] MEDS: MORPHINE SULFATE 4 MG/ML INJ IV PUSH PRN ×2 (00:37→05:03)
--- NOTE | 2017-08-20 02:14 | HHI.HP ---
[facility] Physician Neeru Ceja MD Admission Diagnosis intractable abdominal pain, cholelithiasis, biliary colic Diagnoses: Travel History International Travel<30 Days: No Contact w/Intl Traveler <30 Da: No Traveled to Known Affected Are: No History of Present Illness 42-year-old female with a past medical history significant for factor V Leiden presents to the emergency department for evaluation of right upper quadrant abdominal pain. The patient states the pain started after Thanksgiving when she went to [facility] emergency department. CT of the abdomen/pelvis was unremarkable. She was instructed to follow-up with her cullet washer which she did on 08/17. She had an endoscopy that was within normal limits. Her cullet washer was working on a referral to surgery out of concern for biliary colic. The patient states the pain has remained constant until today when she had severe abdominal pain worse in the right upper quadrant and nausea/ vomiting. She endorses subjective fever/chills. No leukocytosis. Afebrile. Ultrasound of the gallbladder showed a gallstone in the gallbladder neck. Review of Systems Subjective fever/chills Denies blurry vision, otorrhea, rhinorrhea Denies sore throat and cough No chest pain, palpitations, shortness of breath No abdominal pain Positive nausea/vomiting Denies muscle pain/weakness No rashes Past Family Social History Past Medical History Factor V Leiden PCOS Past Surgical History Appendectomy Neck fusion Reported Medications Reported Meds & Active Scripts Active Percocet (Oxycodone-Acetaminophen) 5-325 mg Tab 1 Tab PO Q4H PRN Zofran (Ondansetron HCl) 4 Mg Tab 4 Mg PO Q6HR PRN Zantac (Ranitidine HCl) 150 Mg Tab 150 Mg PO BID Reported Lorazepam 2 Mg Tab 2 Mg PO HS PRN Lorazepam 1 Mg Tab 1 Mg PO DAILY PRN Pantoprazole (Pantoprazole Sodium) 40 Mg Tab 40 Mg PO BID Fluoxetine (Fluoxetine HCl) 40 Mg Cap 80 Cap PO DAILY Allergies: Coded Allergies: Influenza Virus Vaccines (Unverified Allergy, Severe, HIVES, 08/04/17) penicillin G (Unverified Allergy, Severe, RASH, 08/04/17) fentanyl (Unverified Allergy, Unknown, unknown, 08/04/17) prochlorperazine (Unverified Allergy, Unknown, PARALYSIS, 08/04/17) Family History Mother with CAD, DM. Father with DM. Social History Denies alcohol, tobacco and illicit drugs. Physical Exam Vital Signs Vital Signs Date Time Temp Pulse Resp B/P (MAP) Pulse Ox O2 Delivery O2 Flow Rate FiO2 08/19/17 23:35 98.2 81 17 110/74 (86) 96 08/19/17 22:06 98.1 78 16 111/77 (88) 96 08/19/17 21:21 08/19/17 20:28 20 08/19/17 20:28 20 08/19/17 18:55 16 08/19/17 18:55 16 98 Room Air 08/19/17 18:06 98.7 83 18 133/81 (98) 99 Physical Exam GENERAL: female lying in bed SKIN: No rashes, ecchymoses or lesions. Cool and dry. HEAD: Atraumatic. Normocephalic. No temporal or scalp tenderness. EYES: Pupils equal round and reactive. Extraocular motions intact. No scleral icterus. No injection or drainage. ENT: Nose without bleeding, purulent drainage or septal hematoma. Throat without erythema, tonsillar hypertrophy or exudate. Uvula midline. Airway patent. NECK: Trachea midline. No JVD or lymphadenopathy. Supple, nontender, no meningeal signs. CARDIOVASCULAR: Regular rate and rhythm without murmurs, gallops, or rubs. RESPIRATORY: Clear to auscultation. Breath sounds equal bilaterally. No wheezes , rales, or rhonchi. GASTROINTESTINAL: Abdomen soft, mildly tender to palpation worse in the right upper quadrant, nondistended. No hepato-splenomegaly, or palpable masses. No guarding. MUSCULOSKELETAL: Extremities without clubbing, cyanosis, or edema. No joint tenderness, effusion, or edema noted. No calf tenderness. NEUROLOGICAL: Awake and alert. Cranial nerves II through XII intact. Motor and sensory grossly within normal limits. Normal speech. Laboratory Laboratory Tests Test 08/19/17 18:10 08/19/17 18:50 Urine Color LIGHT-YELLOW Urine Turbidity CLEAR Urine pH 7.0 Urine Specific [place] 1.010 Urine Protein NEG Urine Glucose (UA) NEG Urine Ketones NEG Urine Occult Blood TRACE Urine Nitrite NEG Urine Bilirubin NEG Urine Urobilinogen LESS THAN 2.0 Urine Leukocyte Esterase NEG Urine RBC LESS THAN 1 Urine WBC 1 Urine Squamous Epithelial Cells <1 Microscopic Urinalysis Comment CULT NOT INDICATED White Blood Count 6.5 Red Blood Count 3.94 Hemoglobin 12.5 Hematocrit 36.6 Mean Corpuscular Volume 92.8 Mean Corpuscular Hemoglobin 31.6 Mean Corpuscular Hemoglobin Concent 34.1 Red Cell Distribution Width 13.5 Platelet Count 241 Mean Platelet Volume 8.4 Neutrophils (%) (Auto) 44.9 Lymphocytes (%) (Auto) 45.0 Monocytes (%) (Auto) 6.4 Eosinophils (%) (Auto) 3.0 Basophils (%) (Auto) 0.7 Neutrophils # (Auto) 2.9 Lymphocytes # (Auto) 2.9 Monocytes # (Auto) 0.4 Eosinophils # (Auto) 0.2 Basophils # (Auto) 0.0 CBC Comment DIFF FINAL Differential Comment Prothrombin Time 10.4 Prothromb Time International Ratio 1.0 Activated Partial Thromboplast Time 27.1 Blood Urea Nitrogen 13 Creatinine 0.76 Random Glucose 86 Total Protein 7.2 Albumin 3.5 Calcium Level 8.8 Alkaline Phosphatase 93 Aspartate Amino Transf (AST/SGOT) 20 Alanine Aminotransferase (ALT/SGPT) 37 Total Bilirubin 0.2 Sodium Level 139 Potassium Level 4.0 Chloride Level 104 Carbon Dioxide Level 28.0 Anion Gap 7 Estimat Glomerular Filtration Rate 83 Lactic Acid Level 0.7 Lipase 163 Result Diagram: 08/19/17184908/19/171849 Caprini VTE Risk Assessment Caprini VTE Risk Assessment: No/Low Risk (score <= 1) Caprini Risk Assessment Model Point Value = 1 Point Value = 2 Point Value = 3 Point Value = 5 Age 41-60 Minor surgery BMI > 25 kg/m2 Swollen legs Varicose veins or History of unexplained or recurrent spontaneous Oral contraceptives or hormone replacement Sepsis (< 1 month) Serious lung disease, including pneumonia (< 1 month) Abnormal pulmonary function Acute myocardial infarction Congestive heart failure (< 1 month) History of inflammatory bowel disease Medical patient at bed rest Age 61-74 Arthroscopic surgery Major open surgery (> 45 min) Laparoscopic surgery (> 45 min) Malignancy Confined to bed (> 72 hours) Immobilizing plaster cast Central venous access Age >= 75 History of VTE Family history of VTE Factor V Leiden Prothrombin [id number] Lupus anticoagulant Anticardiolipin antibodies Elevated serum homocysteine Heparin-induced thrombocytopenia Other congenital or acquired thrombophilia Stroke (< 1 month) Elective arthroplasty Hip, pelvis, or leg fracture Acute spinal cord injury (< 1 month) Prophylaxis Regimen Total Risk Factor Score Risk Level Prophylaxis Regimen 0-1 Low Early ambulation 2 Moderate Order ONE of the following: *Sequential Compression Device (SCD) *Heparin 5000 units SQ BID 3-4 Higher Order ONE of the following medications: *Heparin 5000 units SQ TID *Enoxaparin/Lovenox 40 mg SQ daily (WT < 150 kg, CrCl > 30 mL/min) *Enoxaparin/Lovenox 30 mg SQ daily (WT < 150 kg, CrCl > 10-29 mL/min) *Enoxaparin/Lovenox 30 mg SQ BID (WT < 150 kg, CrCl > 30 mL/min) AND/OR *Sequential Compression Device (SCD) 5 or more Highest Order ONE of the following medications: *Heparin 5000 units SQ TID (Preferred with Epidurals) *Enoxaparin/Lovenox 40 mg SQ daily (WT < 150 kg, CrCl > 30 mL/min) *Enoxaparin/Lovenox 30 mg SQ daily (WT < 150 kg, CrCl > 10-29 mL/min) *Enoxaparin/Lovenox 30 mg SQ BID (WT < 150 kg, CrCl > 30 mL/min) AND *Sequential Compression Device (SCD) Assessment and Plan Assessment and Plan Assessment/plan: 1. Biliary colic/gallstones Ultrasound of the gallbladder showed gallstones in the gallbladder neck. No gallbladder wall thickening. General surgery consulted for possible elective cholecystectomy Nothing by mouth Morphine for pain 2. Depression/anxiety Continue home Ativan and fluoxetine FEN NPO NS at 100 cc/hr Electrolytes: monitor and replete prn SCDs Case discussed with ER physician at length Danielle Denson MD Aug 20, 2017 02:14
[2017-08-20 03:28] VITALS: BP 111/67; PULSE 80; RESP 16; TEMP 98.1; O2SAT 97
[2017-08-20] MEDS: ONDANSETRON HCL 4 MG/2 ML VIAL IVP PRN ×2 (05:14→10:01)
[2017-08-20 05:53] LABS: AUTOMATED NEUTROPHIL # 2.7 TH/MM3 (1.8-7.7); BASOPHIL % 0.5 % (0.0-2.0); EOSINOPHIL # 0.2 TH/MM3 (0-0.4); HEMATOCRIT 34.6 % (35.0-46.0); HEMO FLAGS DIFF FINAL; LYMPH % 47.5 % (9.0-44.0); MEAN CELL VOLUME 92.2 FL (80.0-100.0); MEAN CORPUSCULAR HEMOGLOBIN 31.4 PG (27.0-34.0); MONO % 6.7 % (0.0-8.0); NEUT % 42.3 % (16.0-70.0); PLATELET COUNT 219 TH/MM3 (150-450); RED BLOOD COUNT 3.75 MIL/MM3 (4.00-5.30); RED CELL DISTRIBUTION WIDTH 13.3 % (11.6-17.2); WHITE BLOOD COUNT 6.3 TH/MM3 (4.0-11.0)
[2017-08-20 06:15] LABS: ANION GAP 6 MEQ/L (5-15); AST (GOT) 19 U/L (15-37); BICARBONATE 29.5 MEQ/L (21.0-32.0); BLOOD UREA NITROGEN 11 MG/DL (7-18); CHLORIDE 106 MEQ/L (98-107); GLOMERULAR FILTRATION RATE 72 ML/MIN (>89); POTASSIUM 3.9 MEQ/L (3.5-5.1); SODIUM (NA) 141 MEQ/L (136-145)
[2017-08-20 06:17] LABS: ALT (GPT) 34 U/L (10-53)
[2017-08-20 06:19] LABS: ALKALINE PHOSPHATASE 88 U/L (45-117); TOTAL BILIRUBIN ADULT 0.5 MG/DL (0.2-1.0)
[2017-08-20 07:55] VITALS: BP 113/71; PULSE 80; RESP 18; TEMP 98.4; O2SAT 96
[2017-08-20] MEDS ORDERED: FLUoxetine HCL 20 MG CAP PO SCH (09:00)
[2017-08-20] MEDS: SODIUM CHLORIDE 0.9% FLUSH 10 ML FLUSH IV FLUSH SCH (09:43)
[2017-08-20] MEDS: FAMOTIDINE 20 MG TAB PO SCH (09:44)
[2017-08-20] MEDS: PANTOPRAZOLE SOD 40 MG DELAYED RELEASE TAB PO SCH (09:44)
[2017-08-20] MEDS: DOCUSATE SODIUM 50 MG/SENNA 8.6 MG TAB PO SCH (09:44)
[2017-08-20] MEDS ORDERED: ACETAMIN 325 MG/BUTALBITAL 50 MG/CAFFEINE 40 MG TAB PO ONE (09:45)
[2017-08-20] MEDS: SODIUM CHLOR 0.9% 1000 ML INJ 1,000 ML IV SCH (09:46)
[2017-08-20] MEDS: SODIUM CHLORIDE 0.9% FLUSH 10 ML FLUSH IV FLUSH PRN (10:02)
[2017-08-20] MEDS ORDERED: KETOROLAC TROMETHAMINE 30 MG/ML (IVP) VIAL IV PUSH ONE (11:45)
[2017-08-20] MEDS ORDERED: METOCLOPRAMIDE HCL 10 MG/2 ML VIAL IV PUSH ONE (12:00)
[2017-08-20 12:15] VITALS: BP 117/70; PULSE 73; RESP 18; TEMP 97.5; O2SAT 97
--- NOTE | 2017-08-20 13:20 | EKG ---
Date Performed: 08/19/2017 Time Performed: 19:20:21 PTAGE: 42 years EKG: Sinus rhythm NORMAL ECG PREVIOUS TRACING : 12/12/2015 19.41 Compared to prior tracing no significant change DOCTOR: Be Braun Interpretating Date/Time 08/20/2017 13:19:18
--- NOTE | 2017-08-20 15:13 | MB ---
cc: LEXUS CASIANO M.D. DATE OF CONSULTATION: 08/20/2017. REASON FOR CONSULTATION: Gallstones. Abdominal pain. HISTORY OF PRESENT ILLNESS: This is a pleasant 42-year-old female who for about a month now she has been having intermittent pain she describes in the mid epigastric region and right upper quadrant. She was seen in the [facility] about a month ago where they did a CT scan. They could not give her ra diagnosis and referred her to gastroenterology where last she had an EGD showing esophagitis, esophageal stricture requiring dilatation and gastritis. She came into the hospital yesterday and got admitted. Ultrasound showed gallstones. She was supposed to have a HIDA scan scheduled but they could not fit her in because of a lack of the radionuclide to perform the test adequately and this was being arranged. She came into the hospital yesterday and her pain has somewhat subsided. Surgery was consulted for consideration of timing of cholecystectomy. PAST MEDICAL HISTORY: Significant for: 1. Factor V Leiden mutation. 2. She has had this abdominal pain. 3. She has reflux. 4. She has an esophageal stricture. 5. Last year had some neck surgery. 6. She has had a section. 7. She has had an appendectomy. MEDICATIONS: 1. Fluoxetine. 2. Lorazepam. 3. Zofran. 4. Oxycodone. 5. Propranolol. 6. Zantac. REVIEW OF SYSTEM No cardiac or pulmonary issues No issues No neurologic issues GI issues as above She's had some neck surgery Has factor V Leiden mutation which is a hypercoagulable state PHYSICAL EXAMINATION: GENERAL: On physical exam, she is sitting in the bed. She looks fairly comfortable. NECK: The neck is supple. CHEST: Clear. HEART: Regular rate. ABDOMEN: Soft with mild soreness mid-epigastric, right upper quadrant region with deep palpation. Surgical scars from appendectomy and section. EXTREMITIES: No cyanosis, clubbing or edema. NEUROLOGIC: She is alert and oriented without focal deficit. Cranial nerves II through XII are grossly intact. LABORATORY DATA: She had a white count of 6, hemoglobin and hematocrit of 11 and 34. Chemistries essentially normal with liver function tests all normal. Lipase normal. Coags are normal. Urinalysis is clear. IMAGING STUDIES: She had an ultrasound of the gallbladder showing a gallstone in the neck of the gallbladder. She had a CT scan done August 04 which showed no abnormality. She has had a plain film which showed some mild constipation. ASSESSMENT: A 42-year-old female who has a longstanding history of reflux and gastritis who recently underwent an EGD showing esophageal stricture requiring dilatation and esophagitis and gastritis. Final pathology is pending. This was done by Dr. Briones. She has ultrasound findings of gallstones. She has symptomatology consistent with biliary colic. On her recent plain film, she does have the appearance of constipation and a fair amount of stool in the right colon. PLAN AT THIS TIME: I had a detailed discussion with her about cholecystectomy. She does have two other sources of her abdominal discomfort being mainly her constipation and the longstanding gastritis and esophagitis. I think her constipation may be related to the pain medicine, which they gave to her when she was in the first emergency room visit she was given some Percocet to take for her discomfort. I think this exacerbated her abdominal discomfort by causing some constipation. She and her agree. I think she is stable enough. She wants to try to go home and follow up in my office for planned cholecystectomy in the near future. She wants to try to relieve the constipation and get over her recent EGD and this emergency room hospitalization. I have given the my card and told them to call the office on Monday to schedule outpatient cholecystectomy. While she is here in the emergency room, I advanced her diet with anticipation of discharge later today depending on her plan. MD ALONA Osuna/REBECCA /2:26 PM /2:51 PM [facility]
[2017-08-20] MEDS ORDERED: SENN8.6T81 PO (15:36)
[2017-08-20] MEDS ORDERED: DOCU100C15 PO (15:36)
[2017-08-20] MEDS ORDERED: PERC5TAB12 PO (15:36)
--- NOTE | 2017-08-20 15:36 | HHI.DCPOC ---
Discharge Care Plan Diagnosis: (1) Migraine (2) Abnormal ultrasound of gallbladder (3) GERD (gastroesophageal reflux disease) (4) Esophageal stricture (5) Cholelithiasis (6) Biliary colic Goals to Promote Your Health * To prevent worsening of your condition and complications * To maintain your health at the optimal level Directions to Meet Your Goals Take your medications as prescribed Follow your dietary instruction Follow activity as directed Keep your appointments as scheduled Take your immunizations and boosters as scheduled If your symptoms worsen call your PCP, if no PCP go to Urgent Care Center or Emergency Room Smoking is Dangerous to Your Health. Avoid second hand smoke Call the 24-hour hour crisis hotline for domestic abuse at Trey Bingham DO Aug 20, 2017 15:36
--- NOTE | 2017-08-20 15:37 | HHI.PR ---
Subjective Remarks The patient was feeling better and tolerating a diet. She wanted to try some stool softeners for constipation relief. She said her migraine was much better. She said she will follow up with general surgery as an outpatient. Discussed with nursing. Objective Vitals Vital Signs Date Time Temp Pulse Resp B/P (MAP) Pulse Ox O2 Delivery O2 Flow Rate FiO2 08/20/17 12:15 97.5 73 18 117/70 (86) 97 08/20/17 07:55 98.4 80 18 113/71 (85) 96 08/20/17 03:28 98.1 80 16 111/67 (82) 97 08/19/17 23:35 98.2 81 17 110/74 (86) 96 08/19/17 22:06 98.1 78 16 111/77 (88) 96 08/19/17 21:21 08/19/17 20:28 20 08/19/17 20:28 20 08/19/17 18:55 16 08/19/17 18:55 16 98 Room Air 08/19/17 18:06 98.7 83 18 133/81 (98) 99 I/O 08/19/17 08/19/17 08/19/17 08/20/17 08/20/17 08/20/17 07:00 15:00 23:00 07:00 15:00 23:00 # Voids 2 2 Result Diagram: 08/20/17 0516 08/20/17 0516 Imaging Last Impressions Abdomen X-Ray 08/19/17 1834 Signed Impressions: Service Date/Time: Saturday, August 19, 2017 18:46 - CONCLUSION: 1. Moderate constipation on the right. No acute findings. Jin Sebastian MD Gall Bladder Ultrasound 08/19/17 0000 Signed Impressions: Service Date/Time: Saturday, August 19, 2017 19:25 - CONCLUSION: Gallstone in gallbladder neck. No gallbladder wall thickening. Fatty liver. Jin Sebastian MD Objective Remarks GENERAL: Resting comfortably. SKIN: No rashes, ecchymoses or lesions. Cool and dry. HEAD: Atraumatic. Normocephalic. No temporal or scalp tenderness. EYES: Pupils equal round and reactive. Extraocular motions intact. No scleral icterus. No injection or drainage. ENT: Nose without bleeding, purulent drainage or septal hematoma. Throat without erythema, tonsillar hypertrophy or exudate. Uvula midline. Airway patent. NECK: Trachea midline. No JVD or lymphadenopathy. Supple, nontender, no meningeal signs. CARDIOVASCULAR: Regular rate and rhythm without murmurs, gallops, or rubs. RESPIRATORY: Clear to auscultation. Breath sounds equal bilaterally. No wheezes , rales, or rhonchi. GASTROINTESTINAL: Abdomen soft, mildly tender to palpation worse in the right upper quadrant, nondistended. No hepato-splenomegaly, or palpable masses. No guarding. MUSCULOSKELETAL: Extremities without clubbing, cyanosis, or edema. No joint tenderness, effusion, or edema noted. No calf tenderness. NEUROLOGICAL: Awake and alert. Cranial nerves II through XII intact. Motor and sensory grossly within normal limits. Normal speech. Medications and IVs Current Medications Medications (Trade) Dose Ordered Sig/Gómez Route Start Time Stop Time Status Last Admin Sodium Chloride 1,000 ml @ 100 mls/hr Q10H IV 08/19/17 20:34 08/20/17 09:46 (NS Flush) 2 ml UNSCH PRN IV FLUSH 08/19/17 20:45 08/20/17 11:51 (NS Flush) 2 ml BID IV FLUSH 08/19/17 21:00 08/20/17 09:43 (Tylenol) 650 mg Q4H PRN PO 08/19/17 20:45 (Zofran Inj) 4 mg Q6H PRN IVP 08/19/17 20:45 08/20/17 10:01 (Narcan Inj) 0.4 mg UNSCH PRN IV PUSH 08/19/17 20:45 (Shannen-Colace) 1 tab BID PO 08/19/17 21:00 08/20/17 09:44 (Milk Of Magnesia Liq) 30 ml Q12H PRN PO 08/19/17 20:45 08/20/17 10:18 (Senokot) 17.2 mg Q12H PRN PO 08/19/17 20:45 (Dulcolax Supp) 10 mg DAILY PRN RECTAL 08/19/17 20:45 (Lactulose Liq) 30 ml DAILY PRN PO 08/19/17 20:45 08/20/17 04:14 (Morphine Inj) 4 mg Q4H PRN IV PUSH 08/19/17 20:45 08/20/17 05:03 (Ativan) 2 mg HS PRN PO 08/19/17 20:45 08/19/17 23:27 (Protonix) 40 mg BID PO 08/19/17 21:00 08/20/17 09:44 (Pepcid) 20 mg BID PO 08/19/17 21:00 08/20/17 09:44 (PROzac) 80 mg DAILY PO 08/21/17 09:00 A/P Assessment and Plan Biliary colic/gallstones Ultrasound of the gallbladder showed gallstones in the gallbladder neck. No gallbladder wall thickening. General surgery consulted for possible elective cholecystectomy, appreciate input. - Diet was advanced and the patient tolerated. - Outpatient follow-up with general surgery. - Pain control with a bowel regimen. Migraine The patient has multiple migraine attacks on a weekly basis. Resolved with Toradol and Reglan IV. - Referred the patient to her primary care for prophylaxis against migraines. - Continue with Fioricet as needed. Constipation The patient feels part of her abdominal pain may be from constipation. - Bowel regimen ordered. Depression/anxiety Continue home Ativan and fluoxetine PPx: Ambulation Discharge Planning Discharge patient home Trey Bingham DO Aug 20, 2017 15:37
[2017-08-20 15:45] VITALS: BP 102/68; PULSE 89; RESP 18; TEMP 98; O2SAT 97
[2017-08-21] MEDS ORDERED: FLUoxetine HCL 20 MG CAP PO SCH (09:00)
== END 2017-08-20 16:45 | disposition home or self-care (01) ==
LOC: NEPD 18:05 → NEDA 20:30 → NEPHCDU 21:29
PROVIDERS: ADMIT Hospitalist; ATTEND Hospitalist
DX: K80.20 Calculus of gallbladder without cholecystitis without obstruction (principal); K76.0 Fatty (change of) liver, not elsewhere classified; K59.00 Constipation, unspecified; F41.9 Anxiety disorder, unspecified; F32.9 Major depressive disorder, single episode, unspecified; D68.51 Activated protein C resistance; E28.2 Polycystic ovarian syndrome; K21.0 Gastro-esophageal reflux disease with esophagitis; M54.9 Dorsalgia, unspecified; R20.0 Anesthesia of skin; G43.909 Migraine, unspecified, not intractable, without status migrainosus; Z79.899 Other long term (current) drug therapy; Z98.1 Arthrodesis status
CPT/HCPCS: 74000; 76705; 80053; 81001; 82948; 83605; 83690; 84703; 85025; 85610; 85730; 93005; 96374; 96375; 96376; 99285; G0378; J1885; J2270; J2405; J2765; J7030

== ENCOUNTER → 2017-10-25 | Day surgery (SDC) | payer OTHER ==
[~2017-10-25] MED LIST changes: +ACETAMINOPHEN 1000 MG/100 ML 100 ML IV ONE; +DOCU100C15 PO; +KETOROLAC TROMETHAMINE 30 MG/ML (IVP) VIAL ONE; +LACTATED RINGER'S 1000 ML INJ 1,000 ML ONE; +MIDAZOLAM HCL 2 MG/2 ML VIAL ONE; +ONDANSETRON HCL 4 MG/2 ML VIAL IV PUSH ONE; +PROPOFOL 200 MG/20 ML AMP IV ONE; +SENN8.6T81 PO; +oxyCODONE/ACETAMINOPHEN 5 MG/325 MG TAB ONE
--- NOTE | 2017-10-25 13:21 | PD.OP ---
cc: Jin Guillen MD; Larry Dye MD Operative Report Date of Surgery: Oct 25, 2017 Preoperative Diagnosis: (1) Lipoma Postoperative Diagnosis: (1) Lipoma Procedure: excision left upper abdomen lipoma 4x3cm Anesthesia: Gen Surgeon: Larry Dye Epic Professional(s): staff Operation and Findings: EBL: 5 cc Operative findings: Hypertrophied fatty tissue in the left inferior costal margin. Approximately 4 x 3 cm removed. Procedure in detail: The patient was taken to the operative room placed in supine position. Anesthesia was induced. The left upper abdomen was prepped and draped in usual sterile fashion and a surgical timeout was performed to verify correct patient procedure and site. Approximately a 6 cm incision was made in the left upper abdomen at the level of the costal margin. There is underlying hypertrophied fatty tissue which was removed down to the level of the underlying fascia. An area of about 4 x 3 cm was removed. Hemostasis was achieved. The incision was closed in 2 layers with deep dermal 3-0 Vicryl and subcuticular 4-0 Monocryl. Dermabond was applied. Larry Dye MD Oct 25, 2017 13:21
== END | disposition home or self-care (01) ==
LOC: ESDC 11:03
PROVIDERS: ATTEND Surgery
DX: D17.1 Benign lipomatous neoplasm of skin and subcutaneous tissue of trunk (principal)
CPT/HCPCS: 00700; 22900; 88304; J0131; J1885; J2250; J2405; J3010; J7120

== ENCOUNTER 2018-02-01 13:29 | Emergency (ER) | payer OTHER ==
[~2018-02-01] VITALS: Ht 162.6 cm; Wt 73.0 kg
[~2018-02-01 13:29] MED LIST changes: -ACETAMINOPHEN 1000 MG/100 ML 100 ML IV ONE; -KETOROLAC TROMETHAMINE 30 MG/ML (IVP) VIAL ONE; -LACTATED RINGER'S 1000 ML INJ 1,000 ML ONE; -MIDAZOLAM HCL 2 MG/2 ML VIAL ONE; -ONDANSETRON HCL 4 MG/2 ML VIAL IV PUSH ONE; -PROPOFOL 200 MG/20 ML AMP IV ONE; -oxyCODONE/ACETAMINOPHEN 5 MG/325 MG TAB ONE
[2018-02-01] MEDS ORDERED: IOHEXOL 350 MG/ML 10 ML VIAL (for RAD DIAG) IVCONTRAST ONE (13:30)
[2018-02-01 13:40] VITALS: BP 119/63; PULSE 89; RESP 20; TEMP 98.8; O2SAT 97
[2018-02-01] MEDS ORDERED: BUTATAB6 PO (14:40)
[2018-02-01] MEDS ORDERED: VALA500T PO (14:40)
[2018-02-01] MEDS ORDERED: SIMV10TA PO (14:40)
[2018-02-01] MEDS ORDERED: GABA300C5 PO (14:40)
[2018-02-01] MEDS ORDERED: SODIUM CHLORIDE 0.9% FLUSH 10 ML FLUSH IVF PRN (15:15)
--- NOTE | 2018-02-01 15:18 | PD ---
HPI Chief Complaint: Abdominal Pain Time Seen by Provider: 14:17 Travel History International Travel<30 days: No Contact w/Intl Traveler<30days: No Traveled to known affect area: No History of Present Illness HPI Patient is a 42-year-old female presents emergency department for evaluation of epigastric abdominal pain. Patient states his been worked up for primary care physician for this but she was told that if the symptoms return that she should return to the emergency department. She states that the symptoms last only for seconds at a time for like a squeezing she also states that she has been having some problems with pain in this area after she swallows food several seconds after swallowing food and thinks that there is some irritation in the esophagus. She states that she has had some intermittent shortness of breath when these symptoms come on. She also endorses some numbness and tingling in the left arm. She does have a history of high cholesterol but denies a history of diabetes high blood pressure smoking. Denies a family history of early heart disease. PFSH Past Medical History Hx Anticoagulant Therapy: No Asthma: No Blood Disorders: No Anxiety: Yes Depression: No Heart Rhythm Problems: No Cancer: No Cardiovascular Problems: No High Cholesterol: Yes Chemotherapy: No Chest Pain: No Congestive Heart Failure: No COPD: No Cerebrovascular Accident: No Diabetes: No Diminished Hearing: No Endocrine: No Gastrointestinal Disorders: Yes (gastritis) GERD: Yes Genitourinary: No Headaches: Yes Hepatitis: No Hiatal Hernia: No Immune Disorder: No Implanted Vascular Access Dvce: Yes Musculoskeletal: Yes (numbness in c-spine) Neurologic: No Psychiatric: Yes (agoraphobia) Reproductive: No Respiratory: No Migraines: Yes Radiation Therapy: No Seizures: No Sleep Apnea: No Thyroid Disease: No Tetanus Vaccination: Unknown Influenza Vaccination: No ?: Not LMP: 01/26/18 : 1 Para: 2 Past Surgical History Abdominal Surgery: No AICD: No Appendectomy: Yes Body Medical Devices: caged c- spine Cardiac Surgery: No Section: Yes Cholecystectomy: Yes Ear Surgery: Yes (TUBES A CHILD) Endocrine Surgery: No Eye Surgery: No Genitourinary Surgery: No Gynecologic Surgery: Yes (C SECTION, ) Joint Replacement: No Neurologic Surgery: Yes (C-5 C-6 C-7 IN DECEMBER 2014) Oral Surgery: No Pacemaker: No Thoracic Surgery: No Other Surgery: Yes (c spine repair, appendectomy, c- section, ABD MASS REMOVED) Social History Alcohol Use: No Tobacco Use: No Substance Use: No Allergies-Medications (Allergen,Severity, Reaction): Coded Allergies: Influenza Virus Vaccines (Unverified Allergy, Severe, HIVES, 02/01/18) penicillin G (Unverified Allergy, Severe, RASH, 02/01/18) fentanyl (Unverified Allergy, Unknown, unknown, 02/01/18) prochlorperazine (Unverified Allergy, Unknown, PARALYSIS, 02/01/18) Reported Meds & Prescriptions Reported Meds & Active Scripts Active Zantac (Ranitidine HCl) 150 Mg Tab 150 Mg PO BID Reported Upknutgvrg-Moenablwqdlvy-Jipipoxs 50-325-40 Mg Tab 1 Tab PO Q4H PRN Do not exceed 6 tablets/day. Valacyclovir (Valacyclovir HCl) 500 Mg Tab 500 Mg PO DAILY Gabapentin 300 Mg Cap 300 Mg PO TID Simvastatin 10 Mg Tab 10 Mg PO DAILY Lorazepam 2 Mg Tab 2 Mg PO HS PRN Lorazepam 1 Mg Tab 1 Mg PO DAILY PRN Pantoprazole (Pantoprazole Sodium) 40 Mg Tab 40 Mg PO BID Fluoxetine (Fluoxetine HCl) 40 Mg Cap 80 Cap PO DAILY Review of Systems Except as stated in HPI: all other systems reviewed are Neg Physical Exam Narrative GENERAL: Well-developed well-nourished no obvious distress SKIN: Focused skin assessment warm/dry. HEAD: Atraumatic. Normocephalic. EYES: Pupils equal and round. No scleral icterus. No injection or drainage. ENT: No nasal bleeding or discharge. Mucous membranes pink and moist. NECK: Trachea midline. No JVD. CARDIOVASCULAR: Regular rate and rhythm. No murmur appreciated. RESPIRATORY: No accessory muscle use. Clear to auscultation. Breath sounds equal bilaterally. GASTROINTESTINAL: Abdomen soft, non-tender, nondistended. Hepatic and splenic margins not palpable. No rebound no percussive tenderness MUSCULOSKELETAL: No obvious deformities. No clubbing. No cyanosis. No edema. NEUROLOGICAL: Awake and alert. No obvious cranial nerve deficits. Motor grossly within normal limits. Normal speech. PSYCHIATRIC: Appropriate mood and affect; insight and judgment normal. Data Data Last Documented VS Vital Signs Date Time Temp Pulse Resp B/P (MAP) Pulse Ox O2 Delivery O2 Flow Rate FiO2 02/01/18 17:55 02/01/18 17:47 82 16 97 Room Air 02/01/18 13:40 98.8 Orders Orders Electrocardiogram (02/01/18 15:06) Ckmb (Isoenzyme) Profile (02/01/18 15:06) Complete Blood Count With Diff (02/01/18 15:06) Comprehensive Metabolic Panel (02/01/18 15:06) D-Dimer (02/01/18 15:06) Magnesium (Mg) (02/01/18 15:06) Prothrombin Time / Inr (Pt) (02/01/18 15:06) Act Partial Throm Time (Ptt) (02/01/18 15:06) Troponin I (02/01/18 15:06) Iv Access Insert/Monitor (02/01/18 15:06) Sodium Chloride 0.9% Flush (Ns Flush) (02/01/18 15:15) Chest, Pa & Lat (02/01/18 15:06) Lipase (02/01/18 15:06) Ed Urine Pregnancytest Poc (02/01/18 15:06) CKMB (02/01/18 15:30) CKMB% (02/01/18 15:30) Ct Pulmonary Angiogram (02/01/18 ) Iohexol 350 Inj (Omnipaque 350 Inj) (02/01/18 13:30) Ed Discharge Order (02/01/18 17:53) Labs Laboratory Tests Test 02/01/18 15:30 White Blood Count 6.8 TH/MM3 Red Blood Count 4.21 MIL/MM3 Hemoglobin 12.7 GM/DL Hematocrit 38.4 % Mean Corpuscular Volume 91.2 FL Mean Corpuscular Hemoglobin 30.2 PG Mean Corpuscular Hemoglobin Concent 33.2 % Red Cell Distribution Width 13.1 % Platelet Count 278 TH/MM3 Mean Platelet Volume 8.4 FL Neutrophils (%) (Auto) 46.9 % Lymphocytes (%) (Auto) 39.9 % Monocytes (%) (Auto) 8.6 % Eosinophils (%) (Auto) 4.1 % Basophils (%) (Auto) 0.5 % Neutrophils # (Auto) 3.2 TH/MM3 Lymphocytes # (Auto) 2.7 TH/MM3 Monocytes # (Auto) 0.6 TH/MM3 Eosinophils # (Auto) 0.3 TH/MM3 Basophils # (Auto) 0.0 TH/MM3 CBC Comment DIFF FINAL Differential Comment Prothrombin Time 10.0 SEC Prothromb Time International Ratio 1.0 RATIO Activated Partial Thromboplast Time 27.5 SEC D-Dimer Quantitative (PE/DVT) 1.36 MG/L FEU Blood Urea Nitrogen 12 MG/DL Creatinine 0.84 MG/DL Random Glucose 81 MG/DL Total Protein 7.4 GM/DL Albumin 3.5 GM/DL Calcium Level 8.7 MG/DL Magnesium Level 2.2 MG/DL Alkaline Phosphatase 105 U/L Aspartate Amino Transf (AST/SGOT) 33 U/L Alanine Aminotransferase (ALT/SGPT) 53 U/L Total Bilirubin 0.3 MG/DL Sodium Level 140 MEQ/L Potassium Level 4.2 MEQ/L Chloride Level 104 MEQ/L Carbon Dioxide Level 28.1 MEQ/L Anion Gap 8 MEQ/L Estimat Glomerular Filtration Rate 74 ML/MIN Total Creatine Kinase 110 U/L Creatine Kinase MB LESS THAN 0.5 NG/ML Troponin I LESS THAN 0.02 NG/ML Lipase 158 U/L MDM Medical Decision Making Medical Screen Exam Complete: Yes Emergency Medical Condition: Yes Differential Diagnosis ACS, GA, GERD, pancreatitis, cholecystitis, acute abdomen unlikely peer Narrative Course Patient was roomed in the emergency department, she appears quite well and in no obvious distress. The patient initial workup only significant for a minimally elevated d-dimer, CT PE protocol was performed and negative. Patient' s symptoms are certainly more esophageal in nature. However I discussed with her that I cannot completely exclude cardiac etiology and she was offered observation status for a stress test. She would rather follow-up with her primary care physician I think is reasonable for her to do so. She can do so in short order according to her. I discussed that she should also consider following up with a soup person and she states that she already has a referral by her primary care physician. Discussed return to ED criteria symptomatic management home. Diagnosis Primary Impression: Epigastric abdominal pain Disposition: 01 DISCHARGE HOME Condition: Stable Mynor Gallegos MD February 01, 2018 15:18
--- NOTE | 2018-02-01 15:45 | RADRPT ---
EXAM DATE: 02/01/2018 3:28 PM EDT AGE/SEX: 42 years / Female INDICATIONS: Chest pain CLINICAL DATA: This is the patient's initial encounter. Patient reports that signs and symptoms have been present for 2 weeks and indicates a pain score of 2/10. MEDICAL/SURGICAL HISTORY: None. None. COMPARISON: [facility] – [place], CHEST PA & LAT, 11/30/2015. . FINDINGS: PA and lateral views of the chest demonstrate the lungs to be symmetrically aerated without evidence of mass, infiltrate or effusion. The cardiomediastinal contours are unremarkable. Osseous structures are intact. CONCLUSION: No active disease. Previous fusion lower cervical spine. Electronically signed by: Jin Sebastian MD 02/01/2018 3:44 PM EDT
[2018-02-01 16:00] LABS: AUTOMATED NEUTROPHIL # 3.2 TH/MM3 (1.8-7.7); BASOPHIL % 0.5 % (0.0-2.0); EOSINOPHIL # 0.3 TH/MM3 (0-0.4); EOSINOPHIL % 4.1 % (0.0-4.0); HEMATOCRIT 38.4 % (35.0-46.0); HEMOGLOBIN 12.7 GM/DL (11.6-15.3); LYMPH % 39.9 % (9.0-44.0); LYMPHOCYTE # 2.7 TH/MM3 (1.0-4.8); MEAN CELL VOLUME 91.2 FL (80.0-100.0); MEAN CORPUSCULAR HEMOGLOBIN 30.2 PG (27.0-34.0); MEAN CORPUSCULAR HGB CONC 33.2 % (32.0-36.0); MEAN PLATELET VOLUME 8.4 FL (7.0-11.0); MONO % 8.6 % (0.0-8.0); MONOCYTE # 0.6 TH/MM3 (0-0.9); NEUT % 46.9 % (16.0-70.0); PLATELET COUNT 278 TH/MM3 (150-450); RED BLOOD COUNT 4.21 MIL/MM3 (4.00-5.30); RED CELL DISTRIBUTION WIDTH 13.1 % (11.6-17.2); WHITE BLOOD COUNT 6.8 TH/MM3 (4.0-11.0)
[2018-02-01 16:13] LABS: D-DIMER 1.36 MG/L FEU (0.00-0.50)
[2018-02-01 16:17] LABS: ALBUMIN 3.5 GM/DL (3.4-5.0); AST (GOT) 33 U/L (15-37); BICARBONATE 28.1 MEQ/L (21.0-32.0); BLOOD UREA NITROGEN 12 MG/DL (7-18); CALCIUM 8.7 MG/DL (8.5-10.1); CHLORIDE 104 MEQ/L (98-107); CREATININE 0.84 MG/DL (0.50-1.00); GLOMERULAR FILTRATION RATE 74 ML/MIN (>89); GLUCOSE,RANDOM 81 MG/DL (74-106); MAGNESIUM 2.2 MG/DL (1.5-2.5); SODIUM (NA) 140 MEQ/L (136-145)
[2018-02-01 16:22] LABS: ALKALINE PHOSPHATASE 105 U/L (45-117); ALT (GPT) 53 U/L (10-53); TOTAL BILIRUBIN ADULT 0.3 MG/DL (0.2-1.0); TOTAL PROTEIN 7.4 GM/DL (6.4-8.2); TROPONIN I LESS THAN 0.02 NG/ML (0.02-0.05)
--- NOTE | 2018-02-01 17:36 | RADRPT ---
EXAM DATE: 02/01/2018 5:32 PM EDT AGE/SEX: 42 years / Female INDICATIONS: Chest pain and abdomen pain with nausea. CLINICAL DATA: This is the patient's initial encounter. Patient reports that signs and symptoms have been present for 1 day and indicates a pain score of 5/10. MEDICAL/SURGICAL HISTORY: . gastritis, gerd. Appendectomy. Cholecystectomy. RADIATION DOSE: 9.75 CTDI (mGy) COMPARISON: No prior [facility] exams available for comparison. TECHNIQUE: Volumetric scanning was performed using a multi-row detector CT scanner during bolus infu sophia of 73 ml Omnipaque 350 (iohexol) nonionic water-soluble contrast as a single exam dose. The valeriy a was post processed with a variety of visualization algorithms including full volume maximum intensi ty projection and sliding thin slab reformation. Using automated exposure control and adjustment of the mA and/or kV according to patient size, radiation dose was kept as low as reasonably achievable t o obtain optimal diagnostic quality images. FINDINGS: No filling defects to suggest pulmonary embolic disease. There is no pleural or pericardial effusion. No hilar, mediastinal or axillary adenopathy. No lung co nsolidation. No acute findings in the upper abdomen. CONCLUSION: 1. Negative for pulmonary embolus. Electronically signed by: Jin Sebastian MD 02/01/2018 5:35 PM EDT
[2018-02-01 17:47] VITALS: BP 122/70; PULSE 82; RESP 16; O2SAT 97
--- NOTE | 2018-02-02 18:10 | EKG ---
Date Performed: 02/01/2018 Time Performed: 15:15:57 PTAGE: 42 years EKG: Sinus rhythm NORMAL ECG Since the PREVIOUS TRACING , no significant change noted PREVIOUS TRACIN08/19/2017 19.20 DOCTOR: Betty Han Interpretating Date/Time 02/02/2018 18:01:21
== END 2018-02-01 18:00 | disposition home or self-care (01) ==
LOC: NEPD 13:29
DX: R10.13 Epigastric pain (principal); R06.02 Shortness of breath; R20.0 Anesthesia of skin; R20.2 Paresthesia of skin; E78.00 Pure hypercholesterolemia, unspecified; F41.9 Anxiety disorder, unspecified; K21.9 Gastro-esophageal reflux disease without esophagitis; Z87.19 Personal history of other diseases of the digestive system; Z79.899 Other long term (current) drug therapy
CPT/HCPCS: 71046; 71275; 80053; 82550; 82552; 83690; 83735; 84484; 84703; 85025; 85379; 85610; 85730; 93005; 99285; Q9967

== ENCOUNTER 2018-06-12 19:49 | Observation (INO) ==
[2018-06-12] MEDS ORDERED: Morphine Inj 4 MG/ML Vial IV.PUSH ONE ×2 (20:35→22:56)
--- NOTE | 2018-06-12 20:54 | ED ---
HPI General Chief complaint: Back Pain/Injury Stated complaint: Lower back pain Time Seen by Provider: 06/12/18 20:21 History of Present Illness HPI narrative: 42-year-old female with a history of factor V Leiden disorder presents the emergency department for evaluation of acute low back pain radiating down the legs. Patient states that she was standing in her shower today washing her hair overhead when she had sudden pain in her lower back radiating down her legs. States that it felt as though her back locked up and she was unable to move her lower legs. States that at this time she also had a episode of urinary incontinence while in the shower. States that after standing for a while still in the shower she was able to get out of the shower and take some ibuprofen 600 mg. States that the pain has been progressively worsening since then. States that she took another dose of ibuprofen 600 mg at 6 PM. States that she is having difficulty with ambulation as this aggravates her pain. States that she does have some weakness of the left leg moreso than the right but moving either of these does aggravate the pain. Pain is severe. States she has not had any specific injury or trauma to her back. Denies any bowel incontinence, fever, chills, nausea, vomiting. No prior history of back problems. No IVDU. Denies . No other complaints. Related Data Home Medications Medication Instructions Recorded Confirmed fluoxetine 80 mg PO HS 06/12/18 06/13/18 lorazepam 1 mg PO DAILY PRN 06/12/18 06/13/18 pantoprazole 40 mg PO BID 06/12/18 06/13/18 gabapentin 300 mg PO DAILY 06/13/18 06/13/18 gabapentin 600 mg PO HS 06/13/18 06/13/18 lorazepam 2 mg PO HS 06/13/18 06/13/18 Allergies Allergy/AdvReac Type Severity Reaction Status Date / Time Influenza Virus Vaccines Allergy Severe HIVES Verified 06/12/18 22:57 penicillin G Allergy Severe RASH Verified 06/12/18 22:57 prochlorperazine Allergy Unknown PARALYSIS Verified 06/12/18 22:57 Review of Systems ROS: all other systems reviewed are negative PMFSH Medical History Medical History Anxiety (Acute) GERD (gastroesophageal reflux disease) (Acute) Surgical History Surgical History H/O neck surgery (Acute) History of 2 sections (Acute) History of cholecystectomy (Acute) Hx of appendectomy (Acute) Social History Social History Substance History: No History of Abuse Second Hand Smoke Exposure: No Smoking Status: Never smoker How Often Do You Have a Drink Containing Alcohol: Never Recent Travel in [facility] within the Last 8 Weeks: No Recent Out of Country Travel within the Last 8 Weeks: No Immunization History Tetanus Immunization: <5 Years Hx Influenza Vaccine This Season: No Exam Narrative Exam Narrative: GENERAL: Well-nourished and well-developed pleasant patient in no acute distress who is nontoxic appearing. SKIN: Warm and dry without any obvious rashes or lesions. HEAD: Normocephalic and atraumatic. EYES: No injection, drainage, or hyphema noted. PERRLA. EOMI. ENT: No nasal drainage noted. Oropharynx is clear. NECK: Supple and the trachea is midline. No cervical spine tenderness to palpation, full range of motion. CARDIOVASCULAR: Regular rate and rhythm. RESPIRATORY: Breath sounds are equal bilaterally with no accessory muscle use, wheezing, rhonchi, or crackles. GASTROINTESTINAL: Abdomen is soft, non-tender, and nondistended. MUSCULOSKELETAL: No obvious deformities, swelling, cyanosis, or ecchymosis is present throughout the upper and lower extremities. Patient has full passive range of motion without any signs of neurovascular compromise. Patient is able to lift her right leg with moderate difficulty however cannot lift left leg. Reporting paresthesias to the left lateral lower leg on exam. Distal pulses are 2+ throughout. BACK: Patient indicates pain located only in lumbar region. Nontender without any obvious deformities, bony point tenderness, or crepitus noted throughout the thoracic and lumbar vertebrae. NEUROLOGICAL: Awake, alert, and oriented. Normal speech. Cranial nerves are grossly intact. Course Initial Documented Vital Signs Temperature 97.4 F L 06/12/18 20:09 Pulse Rate 100 H 06/12/18 20:09 Respiratory Rate 18 06/12/18 20:09 Blood Pressure 132/80 06/12/18 20:09 Pulse Oximetry 96 06/12/18 20:09 Last Documented Vital Signs Temperature 97.4 F L 06/12/18 20:09 Pulse Rate 85 06/13/18 00:38 Respiratory Rate 18 06/13/18 00:38 Blood Pressure 122/74 06/13/18 00:38 Pulse Oximetry 96 06/13/18 00:38 Sign Out Sign Out Data: Patient Sign Out occurred on 06/12/18 at 21:55. Patient's care was discussed, and care was transferred from NEWTON Blackwell to Temitope Calvin MD. Sign Out Comment: Pending MRI results Last updated by Lety aYtes PA at 06/12/18 21:05 Post-Handoff Eval: Accepted for transition of care. Medical Decision Making KAROLYN Attestation KAROLYN supervised visit: Yes Attestation: I, Dr. Calvin, have reviewed the advance practice practitioner's documentation and am in agreement, met with the patient face to face, made the diagnosis, and the medical decision making was done by me. *My assessment and Findings: 42-year-old female presents to the emergency department for grossly worsening low back pain with radiation into bilateral lower extremities with weakness secondary to pain no bladder or bowel incontinence although at time of onset of symptoms while taking a shower reaching overhead and hyperextending her back patient did state that she felt like she had small amount of urinary incontinence but this resolved spontaneously and has not been recurrent no bowel incontinence. No prior history of back injury no fall. Patient has been able to ambulate with assistance since. No recent febrile illness no IV drug use no substance abuse patient's had no lower extremity pain or swelling in the lower leg or calf. No recent long distance travel protracted bedrest or surgical procedure. Patient does have factor V Leiden deficiency but has not had any issues with coagulopathy. Patient has increased pain with weightbearing and attempted range of motion on physical exam sensory exam intact DTRs 2+ and equal no clonus patient has decreased range of motion lower extremity secondary to pain per patient report. Remainder of exam is unremarkable. Imaging studies ordered concur with current plan of evaluation, will rule out acute bony injury disc injury cord compression. Patient has received Decadron and morphine sulfate for pain management along with IV fluid hydration lab specimens collected and sent for resulting. MDM Narrative Medical decision making narrative: 42-year-old female presents to the emergency department for evaluation of acute onset low back pain radiating down the legs with lower extremity weakness worse in the left leg as well as paresthesia in the left leg. Patient is afebrile, vital signs are stable. IV access is obtained, labs of been drawn and sent. Patient is administered morphine 4 mg IV , Zofran 4 mg IV, Decadron 8 mg IV and IV fluids. I discussed the case with my attending physician Dr. Calvin who also evaluated the patient and recommends x- ray imaging of the pelvis and lumbar spine as well as MRI of lumbar spine with and without contrast. Patient will be signed out to Dr. Calvin pending these images. Accepted in transfer of care for follow-up of pending imaging studies and response to medications as well as disposition. At 11 PM imaging study results of the MR lumbar spine reveals mild disc disease at L4-L5 and L5-S1 but no significant stenosis or disc space loss or vertebral body height loss. No cord involvement or compression. Patient given additional dose of morphine 4 mg IV. Patient given injection of muscle relaxant. Plan at this point will be pain control and discharged home with close follow-up to primary care provider. Currently patient pain 6/10 decreased from 10/10; Norflex injection ordered. E forcse queried and no narcotics for more than 2 years. Discussed with [facility] MD Dr Ness --OBS Medical Screen Exam Complete: Yes Emergency Medical Condition: Yes Differential Diagnosis Differential Diagnosis: Spinal cord compression versus herniated disc versus cauda equina versus muscle strain versus muscle spasm Lab Data Result diagrams: 06/12/18 20:40 06/12/18 20:40 POC Results POC Urine Results Negative Lab Results 06/12/18 06/12/18 06/12/18 Range/Units 20:40 20:40 20:40 CBC w Diff Auto diff final WBC 8.9 (4.0-11.0) th/mm3 RBC 4.34 (4.00-5.30) mil/mm3 Hgb 13.1 (11.6-15.3) gm/dL Hct 39.5 (35.0-46.0) % MCV 91.0 (80.0-100.0) fL MCH 30.2 (27.0-34.0) pg MCHC 33.2 (32.0-36.0) % RDW 12.6 (11.6-17.2) % Plt Count 244 (150-450) th/mm3 MPV 8.6 (7.0-11.0) fL Neut % (Auto) 52.3 (16.0-70.0) % Lymph % (Auto) 37.0 (9.0-44.0) % [place] % (Auto) 6.2 (0.0-8.0) % Eos % (Auto) 2.5 (0.0-4.0) % Baso % (Auto) 2.0 (0.0-2.0) % Neut # (Auto) 4.6 (1.8-7.7) th/mm3 Lymph # (Auto) 3.3 (1.0-4.8) th/mm3 [place] # (Auto) 0.6 (0.0-0.9) th/mm3 Eos # (Auto) 0.2 (0.0-0.4) th/mm3 Baso # (Auto) 0.2 (0.0-0.2) th/mm3 WBC Differential . Differential Comment . PT 10.6 (9.8-11.6) sec INR 1.0 Ratio APTT 26.8 (24.3-30.1) sec Sodium 139 (136-145) meq/L Potassium 4.0 (3.5-5.1) meq/L Chloride 105 (98-107) meq/L Carbon Dioxide 25.5 (21.0-32.0) meq/L Anion Gap 9 (5-15) meq/L BUN 16 (7-18) mg/dL Creatinine 1.10 H (0.50-1.00) mg/dL Estimated GFR 54 L (>89) mL/min Random Glucose 89 (74-106) mg/dL Calcium 8.7 (8.5-10.1) mg/dL Total Bilirubin 0.4 (0.2-1.0) mg/dL AST 17 (15-37) U/L ALT 33 (10-53) U/L Alkaline Phosphatase 104 (45-117) U/L Total Protein 7.5 (6.4-8.2) g/dL Albumin 3.8 (3.4-5.0) g/dL Imaging Data Radiologist's impression: Lumbar Spine X-Ray 06/12/18 20:42 CONCLUSION: Intact lumbar spine. Mild degenerative changes at L4/L5 and L5/S1. Pelvis X-Ray 06/12/18 20:42 CONCLUSION: Normal radiographic appearance of the bony pelvis. Lumbar Spine MRI 06/12/18 20:52 CONCLUSION: 1. Intact lumbar spine. 2. Mild S shaped thoracolumbar curvature. No subluxations. 3. Mild disc and facet degenerative changes at L4/L5 and L5/S1 as described. There are posterior annular fissures at both levels. No associated significant foraminal or spinal stenosis. Discharge Plan Discharge Disposition Patient Disposition: 30 Still Patient Discharge Condition Condition: Stable Discharge Details Diagnosis: Lumbar radiculopathy, Annular disc tear, Intractable back pain Physicians Team ED Provider: Temitope Calvin Primary Care Provider: Neeru Velásquez Attending Provider: Jaron Ness Status ED Status: Admitted Observation Patient
[2018-06-12] MEDS ORDERED: Sod Chloride 0.9% Inj 1,000 ML IV.SIG SCH (21:00)
[2018-06-12 21:06] LABS: Baso # (Auto) 0.2 th/mm3 (0.0-0.2); Eos # (Auto) 0.2 th/mm3 (0.0-0.4); Eos % (Auto) 2.5 % (0.0-4.0); Hematocrit 39.5 % (35.0-46.0); Hemoglobin 13.1 gm/dL (11.6-15.3); Lymph # (Auto) 3.3 th/mm3 (1.0-4.8); Mean Corpuscular HGB Conc 33.2 % (32.0-36.0); Mean Corpuscular Hemoglobin 30.2 pg (27.0-34.0); Mean Platelet Volume 8.6 fL (7.0-11.0); Mono # (Auto) 0.6 th/mm3 (0.0-0.9); Mono % (Auto) 6.2 % (0.0-8.0); Neut # (Auto) 4.6 th/mm3 (1.8-7.7); Neut % (Auto) 52.3 % (16.0-70.0); Platelet Count 244 th/mm3 (150-450); Red Blood Count 4.34 mil/mm3 (4.00-5.30); Red Cell Distribution Width 12.6 % (11.6-17.2); White Blood Count 8.9 th/mm3 (4.0-11.0)
[2018-06-12 21:15] LABS: Chloride 105 meq/L (98-107); Sodium 139 meq/L (136-145)
[2018-06-12 21:18] LABS: Albumin 3.8 g/dL (3.4-5.0); Anion Gap 9 meq/L (5-15); Calcium 8.7 mg/dL (8.5-10.1); Carbon Dioxide 25.5 meq/L (21.0-32.0)
[2018-06-12 21:19] LABS: Blood Urea Nitrogen 16 mg/dL (7-18); Glucose,Random 89 mg/dL (74-106)
[2018-06-12 21:21] LABS: Alanine Aminotransferase 33 U/L (10-53)
[2018-06-12 21:22] LABS: Aspartate Aminotransferase 17 U/L (15-37); Glomerular Filtration Rate 54 mL/min (>89)
[2018-06-12 21:23] LABS: Total Protein 7.5 g/dL (6.4-8.2)
[2018-06-12 21:24] LABS: Activated Partial Thrombo Time 26.8 sec (24.3-30.1); Alkaline Phosphatase 104 U/L (45-117); Prothrombin Time 10.6 sec (9.8-11.6)
--- NOTE | 2018-06-12 22:11 | XR ---
EXAM DATE: 06/12/2018 8:42 PM EDT AGE/SEX: 42 years / Female INDICATIONS: Patient complains of lower back pain that radiates into bilateral legs. CLINICAL DATA: This is the patient's initial encounter. Patient reports that signs and symptoms have been present for 1 day and indicates a pain score of 8/10. MEDICAL/SURGICAL HISTORY: None. None. COMPARISON: [facility] – [place], [facility] 12/10/2015. . FINDINGS: No fracture or subluxation demonstrated of the lumbar spine. Vertebral bodies have normal height. Mild disc space narrowing and mild bilateral facet osteoarthritis seen at L4/L5 and L5/S1. CONCLUSION: Intact lumbar spine. Mild degenerative changes at L4/L5 and L5/S1. Electronically signed by: David Garcia MD 06/12/2018 10:10 PM EDT
--- NOTE | 2018-06-12 22:12 | XR ---
EXAM DATE: 06/12/2018 8:42 PM EDT AGE/SEX: 42 years / Female INDICATIONS: Patient complains of lower back/pelvic pain that radiates into bilateral legs. No known injury. CLINICAL DATA: This is the patient's initial encounter. Patient reports that signs and symptoms have been present for 1 day and indicates a pain score of 8/10. MEDICAL/SURGICAL HISTORY: None. None. COMPARISON: No prior exams available for comparison. FINDINGS: Examination of the pelvis demonstrates no evidence of fracture or dislocation. Bony mineralization i s normal. There is no widening of the sacroiliac joints. No foreign body is identified. CONCLUSION: Normal radiographic appearance of the bony pelvis. Electronically signed by: David Garcia MD 06/12/2018 10:10 PM EDT
[2018-06-12] MEDS ORDERED: Gadobutrol PF 7.5 MMOL/7.5 ML Vial (for RAD) IV.SIG ONE (22:30)
--- NOTE | 2018-06-12 22:44 | MR ---
EXAM DATE: 06/12/2018 9:08 PM EDT AGE/SEX: 42 years / Female INDICATIONS: Radiculopathy. Lower left leg weakness for one day. CLINICAL DATA: This is the patient's initial encounter. Patient reports that signs and symptoms have been present for 1 day and indicates a pain score of 10/10. MEDICAL/SURGICAL HISTORY: . Factor 5 Disorder. Fusion, cervical. Appendectomy. sect ion. COMPARISON: [facility], LUMBAR SPINE COMPLETE W OBLIQUE, 06/12/2018. . TECHNIQUE: Multiplanar, multisequence MRI examination of the lumbar spine was performed without and with 7 ml Gadavist (gadobutrol) contrast as a single exam dose. FINDINGS: There is mild S shaped thoracolumbar curvature. The lumbar curvature is levoconvex. There is no fract ure or subluxation. Lumbar vertebral bodies have normal height. Normal conus terminus at the level of L1/L2. T12-L1: The thecal sac has a normal diameter. No evidence of disc bulge or protrusion. The neural foramina are patent bilaterally. L1-L2: The thecal sac has a normal diameter. No evidence of disc bulge or protrusion. The neural foramina are patent bilaterally. L2-L3: The thecal sac has a normal diameter. No evidence of disc bulge or protrusion. The neural foramina are patent bilaterally. L3-L4: The thecal sac has a normal diameter. No evidence of disc bulge or protrusion. The neural foramina are patent bilaterally. L4-L5: The disc is desiccated and has mild loss of height. There is bulging of the disc annulus and a posterior high intensity zone. Very mild bilateral facet osteoarthritis. No foraminal or spinal st enosis demonstrated. L5-S1: The disc is desiccated and has mild loss of height. There is a small posterior disc protrusi on with a high intensity zone. Mild bilateral facet osteoarthritis. No foraminal or spinal stenosis. Mild, reactive appearing enhancement of the posterior annular fissures of the L4/L5 and L5/S1 discs. Otherwise no abnormal enhancement demonstrated. CONCLUSION: 1. Intact lumbar spine. 2. Mild S shaped thoracolumbar curvature. No subluxations. 3. Mild disc and facet degenerative changes at L4/L5 and L5/S1 as described. There are posterior denice ular fissures at both levels. No associated significant foraminal or spinal stenosis. Electronically signed by: David Garcia MD 06/12/2018 10:43 PM EDT
[2018-06-12] MEDS ORDERED: Orphenadrine Inj 60 MG/2 ML Ampul IM ONE (23:07)
[2018-06-13] MEDS ORDERED: HYDROmorphone PF Inj 2 MG/ML Vial IV.PUSH ONE (00:20)
[2018-06-13] MEDS: HYDROmorphone PF Inj 2 MG/ML Vial IV.PUSH PRN ×2 (05:28→22:14)
[2018-06-13] MEDS ORDERED: Ketorolac Inj 30 MG/ML (IVP) Vial IV.PUSH ONE ×2 (06:15→12:00)
[2018-06-13] MEDS ORDERED: MethylPREDNISolone Sod Succinate Inj 40 MG/ML Vial IV.PUSH ONE (07:35)
--- NOTE | 2018-06-13 07:59 | P.HP ---
History of Present Illness Service: [facility] adult med Primary Care Physician: Neeru Velásquez Chief Complaint: back pain radiating down LE History of Present Illness: 42-year-old female with a history of factor V Leiden disorder presents the emergency department for evaluation of acute low back pain radiating down the legs. Patient states that she was standing in her shower yesterday washing her hair overhead when she had sudden pain in her lower back radiating down her legs. States that it felt as though her back locked up and she was unable to move her lower legs. States that she may have had a episode of urinary incontinence while in the shower due to the pain. No more urinary incontinence or symptoms since that time. States that after standing for a while still in the shower she was able to get out of the shower and take some ibuprofen 600 mg. States that the pain had been progressively worsening since then, but is better this morning after medication. She reports that she can now lift her left leg to some degree without excruciating pain and was not able to do this yesterday. States that she took another dose of ibuprofen 600 mg at 6 PM yesterday. States that she is having difficulty with ambulation as this aggravates her pain. States that she does have some weakness of the left leg more so than the right but moving either leg aggravates the pain. Pain is severe. States she has not had any specific injury or trauma to her back, but has "twisted her lower back" several times in the past. She reports that the pain usually resolves within a few hours to 1 day and was not as severe as her current symptomatology. Denies any bowel incontinence, nausea, vomiting. She had low-grade fever at home 2 days prior to arrival with some chills but that all resolved. She attributes this to being around her 7-year-old twins who had a viral illness last week. She has a history of cervical fusion done in 2015. No IVDU. Denies . She does not typically take narcotic medication and review of [facility] database reveals that her last opiate pain medication was given in October 2017 after she had a surgical procedure. She does take Ativan daily as she has done for many years. - Diagnosis (1) Intractable back pain (2) Annular tear of lumbar disc (3) Anxiety (4) GERD (gastroesophageal reflux disease) Review of Systems Constitutional: Reports chills, Reports fever(s), Denies anorexia, Denies body ache(s), Denies daytime sleepiness, Denies excessive sweating, Denies fatigue, Denies headache(s), Denies increased appetite, Denies lack of energy, Denies malaise, Denies night sweats, Denies weakness, Denies weight gain, Denies weight loss, Denies other Eyes: Denies blind spots, Denies blurry vision, Denies bulging eyes, Denies change in vision, Denies double vision, Denies discharge, Denies dry eyes, Denies floaters, Denies irritation, Denies itchy eyes, Denies loss of vision, Denies pain, Denies requires corrective lenses, Denies sensitivity to light, Denies other Ears, Nose, Mouth, and Throat: Denies abnormal hearing, Denies bleeding gums, Denies bad breath, Denies change in voice, Denies dental pain, Denies difficulty swallowing, Denies dizziness, Denies dry mouth, Denies ear discharge , Denies ear pain, Denies facial pain, Denies headache(s), Denies hearing loss, Denies hoarseness, Denies lip swelling, Denies nosebleed, Denies mouth lesions, Denies mouth pain, Denies nasal congestion, Denies nasal discharge, Denies nasal obstruction, Denies nasal trauma, Denies neck lump, Denies neck pain, Denies nose pain, Denies pain with swallowing, Denies poor balance, Denies post nasal drip, Denies ringing in the ears, Denies sinus pain, Denies sinus pressure , Denies sore throat, Denies throat swelling, Denies tongue swelling, Denies other Cardiovascular: Reports leg pain with activity, Denies chest pain, Denies chest pain at rest, Denies chest pain with activity, Denies excessive sweating, Denies fainting, Denies fast heart rate, Denies foot swelling, Denies generalized swelling, Denies irregular heart rhythm, Denies leg sores, Denies leg swelling, Denies lightheadedness, Denies radiating jaw, neck or arm pain, Denies rapid, pounding, or irregular heartbeat, Denies shortness of breath, Denies shortness of breath with activity, Denies shortness of breath when lying down, Denies shortness of breath causing sudden awakening, Denies slow heart rate, Denies other Respiratory: Denies change in phlegm color, Denies chest congestion, Denies cough, Denies coughing up blood, Denies excessive phlegm production, Denies pain on inspiration, Denies pain with cough, Denies shortness of breath, Denies shortness of breath with activity, Denies snoring, Denies stridor, Denies wheezing, Denies other Gastrointestinal: Denies abdominal pain, Denies belching, Denies black, tarry stools, Denies bloating, Denies bright, red blood in stools, Denies change in bowel habits, Denies constant urge to pass stool, Denies change in stools, Denies coffee ground vomit, Denies constipation, Denies cramping, Denies difficulty swallowing, Denies excessive passing of gas, Denies feeling full early, Denies heartburn, Denies incontinent of stools, Denies loose stools, Denies nausea, Denies pain with swallowing, Denies vomiting, Denies vomiting blood, Denies other Musculoskeletal: Reports abnormal walking, Reports back pain, Reports radiating pain into limb, Denies body aches, Denies decreased muscle mass, Denies deformity, Denies joint pain, Denies joint swelling, Denies limited joint movement, Denies loss of height, Denies muscle cramps, Denies muscle weakness, Denies neck pain, Denies numbness, Denies stiffness, Denies tingling, Denies other Neurologic: Reports abnormal walking, Reports radiating pain, Reports weakness Psychiatric: Reports anxiety, Reports panic attacks Endocrine: Denies cold intolerance, Denies excessive sweating, Denies flushing, Denies heat intolerance, Denies increased hunger, Denies increased thirst, Denies increased urination, Denies rapid, pounding, or irregular heartbeat, Denies other PMFSH - History History Provided By: Patient - Medical History Medical History: Medical History (Last Updated 06/13/18 @ 07:55 by Jaron Ness MD, PhD) GERD (gastroesophageal reflux disease) (Acute) Anxiety (Acute) Barretts esophagus Factor V Leiden mutation Panic disorder - Surgical History Surgical History: Surgical History (Last Updated 06/13/18 @ 07:49 by Jaron Ness MD, PhD) H/O neck surgery History of 2 sections History of cholecystectomy Hx of appendectomy S/P excision of lipoma - Family History Family History: Family History (Last Updated 06/13/18 @ 07:50 by Jaron Ness MD, PhD) Sister Factor V Leiden mutation Ulcerative colitis Father Leukemia Mother Uterine cancer Ovarian cancer - Tobacco History Second Hand Smoke Exposure: No Tobacco Use In Past 30 Days: No Smoking Status: Never smoker - Alcohol History How Often Do You Have a Drink Containing Alcohol: Never - Substance Use History Substance History: No History of Abuse - Travel History Recent Travel in the [place] Within the Last 8 Weeks: No Recent Travel Out of the Country Within the Last 8 Weeks: No - Immunization History Tetanus Immunization: <5 Years Hx Influenza Vaccine This Season: No Medications and Allergies Active Medications: Active Medications Enoxaparin Sodium (Lovenox Inj) 30 mg SQ DAILY SHARMILA Gabapentin (Neurontin) 300 mg PO DAILY SHARMILA Gabapentin (Neurontin) 600 mg PO HS SHARMILA Hydromorphone HCl (Dilaudid Pf Inj) 1 mg IV.PUSH Q3HR PRN PRN Reason: BREAKTHROUGH PAIN Last Admin: 06/13/18 05:28 Dose: 1 mg Sodium Chloride (Ns Inj) 1,000 mls @ 0 mls/hr IV.SIG BOLUS SHARMILA Last Infusion: 06/12/18 21:46 Dose: Infused Ketorolac Tromethamine (Toradol Inj) 30 mg IV.PUSH ONCE ONE Stop: 06/13/18 12:01 Lorazepam (Ativan Inj) 1 mg IV.PUSH Q4H PRN PRN Reason: anxiety, agitation Last Admin: 06/13/18 03:20 Dose: 1 mg Lorazepam (Ativan) 2 mg PO HS SHARMILA Methylprednisolone Sodium Succinate (Solumedrol Inj) 40 mg IV.PUSH ONCE ONE Stop: 06/13/18 07:36 Non-Formulary Medication (Fluoxetine [Fluoxetine]) 80 mg PO HS SHARMILA Ondansetron HCl (Zofran Inj) 4 mg IV.PUSH Q6H PRN PRN Reason: nausea, vomiting Oxycodone/Acetaminophen (Percocet 5/325 Mg) 1 tab PO Q6H PRN PRN Reason: pain level 3-10 Last Admin: 06/13/18 02:57 Dose: 1 tab Pantoprazole Sodium (Protonix) 40 mg PO BID SHARMILA Allergies Allergy/AdvReac Type Severity Reaction Status Date / Time Influenza Virus Vaccines Allergy Severe HIVES Verified 06/12/18 22:57 penicillin G Allergy Severe RASH Verified 06/12/18 22:57 prochlorperazine Allergy Unknown PARALYSIS Verified 06/12/18 22:57 Home Medications Medication Instructions Recorded Confirmed Type fluoxetine 80 mg PO HS 06/12/18 06/13/18 History lorazepam 1 mg PO DAILY PRN 06/12/18 06/13/18 History pantoprazole 40 mg PO BID 06/12/18 06/13/18 History gabapentin 300 mg PO DAILY 06/13/18 06/13/18 History gabapentin 600 mg PO HS 06/13/18 06/13/18 History lorazepam 2 mg PO HS 06/13/18 06/13/18 History Exam Vital signs: Vital Signs 06/12/18 20:09 06/12/18 23:06 06/13/18 00:38 Temperature 97.4 F L Pulse Rate 100 H 87 85 Respiratory Rate 18 20 18 Blood Pressure 132/80 113/75 122/74 Pulse Oximetry 96 96 96 06/13/18 01:30 06/13/18 02:15 Temperature 97.4 F L Pulse Rate 87 Respiratory Rate 16 Blood Pressure 121/75 Pulse Oximetry 96 96 Intake & Output 06/12/18 06/13/18 06/13/18 18:59 06:59 18:59 Intake Total 1200 / 1200 Output Total 200 / 200 Balance 1000 / 1000 Weight 78.5 kg Intake: IV 1000 / 1000 NS Inj 1,000 ML @ Wide Open IV. 1000 / 1000 SIG BOLUS SHARMILA Rx#:[id number] Oral 200 / 200 Output: Urine 200 / 200 Other: # Voids 1 Weight On Admission 78.5 kg Narrative: GENERAL: Lying calmly in exam bed, appears comfortable until she attempts to move lower extremities or sit up. SKIN: Warm and dry. HEAD: Atraumatic. Normocephalic. EYES: Pupils equal and round. No scleral icterus. No injection or drainage. ENT: No nasal bleeding or discharge. Mucous membranes pink and moist. NECK: Trachea midline. No JVD. CARDIOVASCULAR: Regular rate and rhythm. No murmurs. RESPIRATORY: No accessory muscle use. Clear to auscultation. Breath sounds equal bilaterally. GASTROINTESTINAL: Abdomen soft, non-tender, nondistended. Hepatic and splenic margins not palpable. Bowel sounds normal. MUSCULOSKELETAL: Extremities without clubbing, cyanosis, or edema. No obvious deformities. Positive straight leg test bilaterally. Negative DEMARCO and FADIR testing. No CVA tenderness. Mild tenderness over bilateral SI joints worse on the left. No central tenderness to palpation. NEUROLOGICAL: Awake and alert. No obvious cranial nerve deficits. Five out of 5 muscle strength in the arms. Lower extremity strength testing limited due to pain. She is able to move lower extremities independently. DTRs 2+ and brisk x4 extremities. Normal speech. PSYCHIATRIC: Appropriate mood and affect; insight and judgment normal. Results - Labs CBC & Chem 7: 06/12/18 20:40 06/12/18 20:40 Labs: Laboratory Results - last 24 hr 06/12/18 06/12/18 06/12/18 20:40 20:40 20:40 CBC w Diff Auto diff final WBC 8.9 RBC 4.34 Hgb 13.1 Hct 39.5 MCV 91.0 MCH 30.2 MCHC 33.2 RDW 12.6 Plt Count 244 MPV 8.6 Neut % (Auto) 52.3 Lymph % (Auto) 37.0 [place] % (Auto) 6.2 Eos % (Auto) 2.5 Baso % (Auto) 2.0 Neut # (Auto) 4.6 Lymph # (Auto) 3.3 [place] # (Auto) 0.6 Eos # (Auto) 0.2 Baso # (Auto) 0.2 WBC Differential . Differential Comment . PT 10.6 INR 1.0 APTT 26.8 Sodium 139 Potassium 4.0 Chloride 105 Carbon Dioxide 25.5 Anion Gap 9 BUN 16 Creatinine 1.10 H Estimated GFR 54 L Random Glucose 89 Calcium 8.7 Total Bilirubin 0.4 AST 17 ALT 33 Alkaline Phosphatase 104 Total Protein 7.5 Albumin 3.8 - Imaging Impressions Lumbar Spine X-Ray 06/12/18 20:42 CONCLUSION: Intact lumbar spine. Mild degenerative changes at L4/L5 and L5/S1. Pelvis X-Ray 06/12/18 20:42 CONCLUSION: Normal radiographic appearance of the bony pelvis. Lumbar Spine MRI 06/12/18 20:52 CONCLUSION: 1. Intact lumbar spine. 2. Mild S shaped thoracolumbar curvature. No subluxations. 3. Mild disc and facet degenerative changes at L4/L5 and L5/S1 as described. There are posterior annular fissures at both levels. No associated significant foraminal or spinal stenosis. Caprini VTE Risk Assessment Caprini VTE Risk Assessment: Moderate/High Risk (score >= 2) Caprini Risk Assessment Model: Point Value = 1 Point Value = 2 Point Value = 3 Point Value = 5 Age 41-60 Minor surgery BMI > 25 kg/m2 Swollen legs Varicose veins or History of unexplained or recurrent spontaneous Oral contraceptives or hormone replacement Sepsis (< 1 month) Serious lung disease, including pneumonia (< 1 month) Abnormal pulmonary function Acute myocardial infarction Congestive heart failure (< 1 month) History of inflammatory bowel disease Medical patient at bed rest Age 61-74 Arthroscopic surgery Major open surgery (> 45 min) Laparoscopic surgery (> 45 min) Malignancy Confined to bed (> 72 hours) Immobilizing plaster cast Central venous access Age >= 75 History of VTE Family history of VTE Factor V Leiden Prothrombin [id number] Lupus anticoagulant Anticardiolipin antibodies Elevated serum homocysteine Heparin-induced thrombocytopenia Other congenital or acquired thrombophilia Stroke (< 1 month) Elective arthroplasty Hip, pelvis, or leg fracture Acute spinal cord injury (< 1 month) Prophylaxis Regimen: Total Risk Factor Score Risk Level Prophylaxis Regimen 0-1 Low Early ambulation 2 Moderate Order ONE of the following: *Sequential Compression Device (SCD) *Heparin 5000 units SQ BID 3-4 Higher Order ONE of the following medications: *Heparin 5000 units SQ TID *Enoxaparin/Lovenox 40 mg SQ daily (WT < 150 kg, CrCl > 30 mL/min) *Enoxaparin/Lovenox 30 mg SQ daily (WT < 150 kg, CrCl > 10-29 mL/min) *Enoxaparin/Lovenox 30 mg SQ BID (WT < 150 kg, CrCl > 30 mL/min) AND/OR *Sequential Compression Device (SCD) 5 or more Highest Order ONE of the following medications: *Heparin 5000 units SQ TID (Preferred with Epidurals) *Enoxaparin/Lovenox 40 mg SQ daily (WT < 150 kg, CrCl > 30 mL/min) *Enoxaparin/Lovenox 30 mg SQ daily (WT < 150 kg, CrCl > 10-29 mL/min) *Enoxaparin/Lovenox 30 mg SQ BID (WT < 150 kg, CrCl > 30 mL/min) AND *Sequential Compression Device (SCD) Assessment and Plan - Assessment (1) Intractable back pain Code(s): M54.9 - Dorsalgia, unspecified Status: Acute Plan: Possibly associated with irritation of posterior annular fissure. She has injured her lower back in the past and may have had tears of the annulus at that time. Some mild reactivity noted in that area on MRI. Patient is nontoxic -appearing. No cauda equina symptomatology appreciated. We will try steroid, Toradol, opiate analgesics. We will have physical therapy see her later today. She improved somewhat per her report overnight and is able to move her left lower extremity more now without pain. Hopefully she will continue to improve. I have talked with her about the dangers posed by opiate therapy in addition to benzo use. She has not had any respiratory suppression and in fact did not sleep much last night due to the pain. She appears quite comfortable this morning while remaining immobile. We will provide Lovenox for DVT prophylaxis given her history of factor V Leiden mutation. (2) Annular tear of lumbar disc Code(s): M51.36 - Other intervertebral disc degeneration, lumbar region Status : Acute Plan: As above. (3) Anxiety Code(s): F41.9 - Anxiety disorder, unspecified Status: Acute Plan: Continue home medication. (4) GERD (gastroesophageal reflux disease) Code(s): K21.9 - Gastro-esophageal reflux disease without esophagitis Status: Acute Plan: Continue PPI. 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 - Plan Code Status: full Discussed Condition With: Patient, her nurse and ER provider
[2018-06-13] MEDS: Enoxaparin Inj 30 MG/0.3 ML Syringe SQ SCH (09:07)
[2018-06-13] MEDS: Gabapentin 300 MG Capsule PO SCH ×2 (09:07→21:37)
[2018-06-13] MEDS ORDERED: Butalbital/APAP/Caff 50/325/40 MG Tablet PO PRN (14:16)
[2018-06-13 14:34] LABS: Amphetamine Screen,Urine Neg (Neg)
[2018-06-13 14:35] LABS: Barbiturate Screen,Urine Neg (Neg)
[2018-06-13 14:38] LABS: Cannabinoid Screen,Urine Neg (Neg)
[2018-06-13 14:40] LABS: Cocaine Screen,Urine Neg (Neg)
[2018-06-13 14:44] LABS: Opiate Screen,Urine Neg (Neg)
[2018-06-13] MEDS: FLUoxetine 20 MG Capsule PO SCH (21:37)
[2018-06-13] MEDS: LORazepam 1 MG Tablet PO SCH (21:38)
[2018-06-14] MEDS: Gabapentin 300 MG Capsule PO SCH ×2 (08:36→20:39)
[2018-06-14] MEDS: Enoxaparin Inj 30 MG/0.3 ML Syringe SQ SCH (08:36)
--- NOTE | 2018-06-14 08:41 | P.PN ---
Subjective Interval history: Much improved. Was able to walk to the restroom with assistance of a walker. Has increased range of motion of lower extremities this morning and decreased back pain. Physical Exam Vital signs: Vital Signs 06/13/18 09:35 06/13/18 12:00 06/13/18 12:16 Temperature 97.0 F L Pulse Rate 76 Respiratory Rate 18 16 18 Blood Pressure 117/72 Pulse Oximetry 94 L 06/13/18 15:10 06/13/18 16:00 06/13/18 17:52 Temperature 97.0 F L Pulse Rate 78 Respiratory Rate 18 16 18 Blood Pressure 119/76 Pulse Oximetry 95 06/13/18 20:00 06/14/18 00:00 Temperature 99.1 F 98.1 F Pulse Rate 93 H 88 Respiratory Rate 16 16 Blood Pressure 124/66 123/80 Pulse Oximetry 94 L 96 Intake & Output 06/13/18 06/14/18 06/14/18 18:59 06:59 18:59 Intake Total 300 / 300 200 / 200 Balance 300 / 300 200 / 200 Weight 78.5 kg Intake: Oral 300 / 300 200 / 200 Other: # Voids 1 2 Narrative: GENERAL: Sleeping, arouses to voice, no acute distress. Cooperative with exam. SKIN: Warm and dry. HEAD: Atraumatic. Normocephalic. EYES: Pupils equal and round. No scleral icterus. No injection or drainage. ENT: No nasal bleeding or discharge. Mucous membranes pink and moist. NECK: Trachea midline. No JVD. CARDIOVASCULAR: Regular rate and rhythm. RESPIRATORY: No accessory muscle use. Clear to auscultation. Breath sounds equal bilaterally. GASTROINTESTINAL: Abdomen soft, non-tender, nondistended. Hepatic and splenic margins not palpable. MUSCULOSKELETAL: Extremities without clubbing, cyanosis, or edema. No obvious deformities. Slight tenderness palpation over SI joints. Negative straight leg test on right. Equivocal straight leg test on the left today. Much improved range of motion in lower extremities and less discomfort on lower back exam per NEUROLOGICAL: Awake and alert. No obvious cranial nerve deficits. Motor grossly within normal limits. 5 out of 5 strength in upper extremities. 4-1/2 out of 5 lower extremities likely limited due to pain. Speech normal. PSYCHIATRIC: Appropriate mood and affect; insight and judgment normal. Results - Labs CBC & Chem 7: 06/12/18 20:40 06/12/18 20:40 Laboratory Results - last 24 hr 06/13/18 14:00 Urine Opiates Screen Neg Ur Barbiturates Screen Neg Ur Amphetamines Screen Neg U Benzodiazepines Scrn Neg Urine Cocaine Screen Neg U Cannabinoids Screen Neg Assessment and Plan - Assessment (1) Intractable back pain Code(s): M54.9 - Dorsalgia, unspecified Status: Acute Plan: Possibly associated with irritation of posterior annular fissure. She has injured her lower back in the past and may have had tears of the annulus at that time. Some mild reactivity noted in that area on MRI. Patient is nontoxic -appearing. No cauda equina symptomatology appreciated. We will try steroid, Toradol, opiate analgesics. She is clinically much improved today and hopefully will go home later today. Would likely benefit from outpatient physical therapy. We will provide Lovenox for DVT prophylaxis given her history of factor V Leiden mutation. (2) Annular tear of lumbar disc Code(s): M51.36 - Other intervertebral disc degeneration, lumbar region Status : Acute Plan: As above. (3) Anxiety Code(s): F41.9 - Anxiety disorder, unspecified Status: Acute Plan: Continue home medication. (4) GERD (gastroesophageal reflux disease) Code(s): K21.9 - Gastro-esophageal reflux disease without esophagitis Status: Acute Plan: Continue PPI. 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 - Plan Hopefully discharge home later today
[2018-06-14] MEDS ORDERED: Ketorolac Inj 30 MG/ML (IVP) Vial IV.PUSH ONE (09:00)
[2018-06-14] MEDS: HYDROmorphone PF Inj 2 MG/ML Vial IV.PUSH PRN ×2 (15:41→20:41)
[2018-06-14] MEDS: MethylPREDNISolone Sod Succinate Inj 40 MG/ML Vial IV.PUSH SCH ×2 (16:41→23:39)
[2018-06-14] MEDS: FLUoxetine 20 MG Capsule PO SCH (20:00)
[2018-06-14] MEDS: LORazepam 1 MG Tablet PO SCH (20:40)
[2018-06-14] MEDS: Senna/Docusate Sodium 8.6/50 MG Tablet PO SCH (20:40)
[2018-06-15 03:06] VITALS: O2SAT 94
[2018-06-15] MEDS: MethylPREDNISolone Sod Succinate Inj 40 MG/ML Vial IV.PUSH SCH (05:38)
--- NOTE | 2018-06-15 07:49 | P.PN ---
Subjective Interval history: Had flare of pain yesterday in the shower. Still requiring pain medication but believes her range of motion is improving she says. She has walked to the restroom several times overnight using a walker without significant difficulty. No loss of bowel or bladder function. No fever. Physical Exam Vital signs: Vital Signs 06/14/18 08:00 06/14/18 10:06 06/14/18 11:02 Temperature 97.3 F L Pulse Rate 96 H Respiratory Rate 16 18 18 Blood Pressure 99/55 L Pulse Oximetry 95 06/14/18 12:00 06/14/18 16:00 06/14/18 16:11 Temperature 96.4 F L 97.0 F L Pulse Rate 80 82 Respiratory Rate 16 16 18 Blood Pressure 110/70 110/67 Pulse Oximetry 96 97 06/14/18 18:21 06/14/18 20:00 06/15/18 00:00 Temperature 97.5 F L 98.4 F Pulse Rate 95 H 79 Respiratory Rate 18 20 20 Blood Pressure 116/57 L 110/62 Pulse Oximetry 95 94 L Intake & Output 06/14/18 06/15/18 06/15/18 18:59 06:59 18:59 Intake Total 1020 / 1020 480 / 480 Balance 1020 / 1020 480 / 480 Weight 78.2 kg Intake: Oral 1020 / 1020 480 / 480 Other: # Voids 4 3 # Bowel Movements 0 Narrative: GENERAL: Sleeping, arouses to voice, no acute distress. Cooperative with exam. Pleasant. SKIN: Warm and dry. HEAD: Atraumatic. Normocephalic. EYES: Pupils equal and round. No scleral icterus. No injection or drainage. ENT: No nasal bleeding or discharge. Mucous membranes pink and moist. NECK: Trachea midline. No JVD. CARDIOVASCULAR: Regular rate and rhythm. RESPIRATORY: No accessory muscle use. Clear to auscultation. Breath sounds equal bilaterally. GASTROINTESTINAL: Abdomen soft, non-tender, nondistended. Hepatic and splenic margins not palpable. MUSCULOSKELETAL: Extremities without clubbing, cyanosis, or edema. No obvious deformities. Slight tenderness palpation over SI joints. Negative straight leg test on right. Equivocal straight leg test on the left with improving range of motion. Left spasm noted in lower back. NEUROLOGICAL: Awake and alert. No obvious cranial nerve deficits. Motor grossly within normal limits. 5 out of 5 strength in upper extremities. 4-1/2 out of 5 lower extremities likely limited due to pain. Speech normal. DTRs are 2+ and brisk x4 extremities. PSYCHIATRIC: Appropriate mood and affect; insight and judgment normal. Results - Labs CBC & Chem 7: 06/12/18 20:40 06/12/18 20:40 Assessment and Plan - Assessment (1) Intractable back pain Code(s): M54.9 - Dorsalgia, unspecified Status: Acute Plan: Possibly associated with irritation of posterior annular fissure. She has injured her lower back in the past and may have had tears of the annulus at that time. Some mild reactivity noted in that area on MRI. Patient is nontoxic -appearing and is afebrile. No cauda equina symptomatology appreciated. Would likely benefit from outpatient physical therapy. We will provide Lovenox for DVT prophylaxis given her history of factor V Leiden mutation. She will try way support brace. Hopefully discharge home later today. (2) Annular tear of lumbar disc Code(s): M51.36 - Other intervertebral disc degeneration, lumbar region Status : Acute Plan: As above. (3) Anxiety Code(s): F41.9 - Anxiety disorder, unspecified Status: Acute Plan: Continue home medication. (4) GERD (gastroesophageal reflux disease) Code(s): K21.9 - Gastro-esophageal reflux disease without esophagitis Status: Acute Plan: Continue PPI. 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 - Plan Hopefully discharge home later today
--- NOTE | 2018-06-15 08:04 | P.DS ---
Date of admission: 06/13/18 00:29 Primary care physician: Neeru Velásquez Attending physician on discharge: Neeru Velásquez Anticipated date of discharge: 06/15/18 Brief History from admission: 42-year-old female with a history of factor V Leiden disorder presents the emergency department for evaluation of acute low back pain radiating down the legs. Patient states that she was standing in her shower yesterday washing her hair overhead when she had sudden pain in her lower back radiating down her legs. States that it felt as though her back locked up and she was unable to move her lower legs. States that she may have had a episode of urinary incontinence while in the shower due to the pain. No more urinary incontinence or symptoms since that time. States that after standing for a while still in the shower she was able to get out of the shower and take some ibuprofen 600 mg. States that the pain had been progressively worsening since then, but is better this morning after medication. She reports that she can now lift her left leg to some degree without excruciating pain and was not able to do this yesterday. States that she took another dose of ibuprofen 600 mg at 6 PM yesterday. States that she is having difficulty with ambulation as this aggravates her pain. States that she does have some weakness of the left leg more so than the right but moving either leg aggravates the pain. Pain is severe. States she has not had any specific injury or trauma to her back, but has "twisted her lower back" several times in the past. She reports that the pain usually resolves within a few hours to 1 day and was not as severe as her current symptomatology. Denies any bowel incontinence, nausea, vomiting. She had low-grade fever at home 2 days prior to arrival with some chills but that all resolved. She attributes this to being around her 7-year-old twins who had a viral illness last week. She has a history of cervical fusion done in 2014. No IVDU. Denies . She does not typically take narcotic medication and review of [facility] database reveals that her last opiate pain medication was given in October 2017 after she had a surgical procedure. She does take Ativan daily as she has done for many years. DS: Diagnosis - Discharge Diagnosis (1) Intractable back pain Status: Acute (2) Annular tear of lumbar disc Status: Acute (3) Anxiety Status: Chronic (4) GERD (gastroesophageal reflux disease) Status: Chronic DS: Medications - Discharge Medications Prescriptions: cyclobenzaprine 10 mg PO Q8H PRN #21 tab PRN Reason: back spasm enoxaparin [Lovenox] 30 mg SUBCUT DAILY 7 Days #2.1 ml oxycodone-acetaminophen 1 tab PO Q6H PRN #12 tab PRN Reason: pain level 3-10; Acute pain prednisone 20 mg PO DAILY #5 tab DS: Summary Hospital Course: Patient slowly progressed during hospital course. There were no red flag findings on exam or history. She will be discharged home on 3-day supply of Percocet in addition to Flexeril as needed and prednisone 20 mg days. She will continue her home medications. I have discussed specific activities to avoid with her. We will provide a front wheeled walker for the patient as well. She will undergo outpatient physical therapy. I have instructed her that if she is not improving she may benefit from outpatient directed pain management as well. - Time Spent with Patient Total time spent providing and/or coordinating discharge services: Less than 30 minutes - Quality: VTE Deep Vein Thrombosis/Pulmonary Embolism Present on Admission: No Exam Vital signs: Vital Signs 06/14/18 10:06 06/14/18 11:02 06/14/18 12:00 Temperature 96.4 F L Pulse Rate 80 Respiratory Rate 18 18 16 Blood Pressure 110/70 Pulse Oximetry 96 06/14/18 16:00 06/14/18 16:11 06/14/18 18:21 Temperature 97.0 F L Pulse Rate 82 Respiratory Rate 16 18 18 Blood Pressure 110/67 Pulse Oximetry 97 06/14/18 20:00 06/15/18 00:00 Temperature 97.5 F L 98.4 F Pulse Rate 95 H 79 Respiratory Rate 20 20 Blood Pressure 116/57 L 110/62 Pulse Oximetry 95 94 L Intake & Output 06/14/18 06/15/18 06/15/18 18:59 06:59 18:59 Intake Total 1020 / 1020 480 / 480 Balance 1020 / 1020 480 / 480 Weight 78.2 kg Intake: Oral 1020 / 1020 480 / 480 Other: # Voids 4 3 # Bowel Movements 0 Results Procedures completed during hospitalization: none - Impressions ITS Impressions Lumbar Spine X-Ray 06/12/18 20:42 CONCLUSION: Intact lumbar spine. Mild degenerative changes at L4/L5 and L5/S1. Pelvis X-Ray 06/12/18 20:42 CONCLUSION: Normal radiographic appearance of the bony pelvis. Lumbar Spine MRI 06/12/18 20:52 CONCLUSION: 1. Intact lumbar spine. 2. Mild S shaped thoracolumbar curvature. No subluxations. 3. Mild disc and facet degenerative changes at L4/L5 and L5/S1 as described. There are posterior annular fissures at both levels. No associated significant foraminal or spinal stenosis. Discharge Plan - Discharge Disposition Patient Disposition: 01 Discharge Home - Discharge Condition Condition: Stable - Discharge Order Discharge Orders: Discharge Order (Routine); Ordered 06/15/18 Ordered By: Jaron Ness - Discharge Details Anticipated Discharge Date: 06/14/18 - Physicians Team Primary Care Provider: Neeru Velásquez Attending Provider: Jaron Ness
[2018-06-15] MEDS: Enoxaparin Inj 30 MG/0.3 ML Syringe SQ SCH (08:42)
[2018-06-15] MEDS: Senna/Docusate Sodium 8.6/50 MG Tablet PO SCH (08:43)
[2018-06-15] MEDS: Gabapentin 300 MG Capsule PO SCH (08:43)
[2018-06-15 09:34] VITALS: BP 121/86; PULSE 65; RESP 13; TEMP 98.2
== END 2018-06-15 10:54 | disposition home or self-care (01) ==
LOC: PHED 19:49 → PHEDA 19:49 → PH3 06-13 01:30
PROVIDERS: ADMIT Family Medicine; ATTEND Family Medicine